=== PATIENT | female | born 1955 | race Caucasian/White ===

== ENCOUNTER 2017-03-29 10:02 | Observation (INO) ==
[2017-03-29] MEDS ORDERED: Aspirin 81 MG TAB.CHEW PO ONE (10:10)
[2017-03-29] MEDS ORDERED: Ondansetron 4 MG/2 ML VIAL IVP ONE (10:10)
--- NOTE | 2017-03-29 10:14 | Emergency Department Note ---
Disposition Clinical Impression: Near syncope Chest pain Qualifiers: Chest pain type: unspecified Qualified Code(s): R07.9 - Chest pain, unspecified Disposition: Admitted As Inpatient Condition: Good Referrals: Jaziel Alonzo DO [Primary Care Provider] - Forms: ED Satisfaction Letter Time of Disposition: 12:34 General Adult HPI - General Chief complaint: ED Arrhythmia/Palpitations Stated complaint: irregular heartbeat / CP Time Seen by Provider: 03/29/17 10:10 Source: patient Mode of arrival: wheelchair Limitations: no limitations Nursing Notes Reviewed: Yes Vital Signs Reviewed: Yes - History of Present Illness HPI Narrative: 61-year-old diabetic who has had symptoms for the last couple of days of pain in her right side of the neck down into her anterior chest. She also says she's been unsteady on her feet. Patient states that she's felt dizzy and felt like she is going to pass out. Pt Subjective Complaint: Chest pain, dizziness Onset (ago): day(s) (2) Location: chest Radiation: neck Pain Severity: moderate Quality: aching Consistency: constant Improves with: nothing Worsens with: nothing Treatments Prior to Arrival: none - Related Data Home Medications Medication Instructions Recorded Confirmed Amlodipine 08/27/15 08/27/15 Fioricet 08/27/15 08/27/15 Flovent Hfa 08/27/15 08/27/15 Gabapentin 08/27/15 08/27/15 Invokana 08/27/15 08/27/15 Lantus Solostar 08/27/15 08/27/15 Lasix 08/27/15 08/27/15 Lisinopril 08/27/15 08/27/15 Methocarbamol 08/27/15 08/27/15 Novalog 08/27/15 08/27/15 Percocet 7.5-325 mg Tablet 08/27/15 08/27/15 Potassium Chloride 08/27/15 08/27/15 Symbicort 08/27/15 08/27/15 Xanax 08/27/15 08/27/15 Zoloft 08/27/15 08/27/15 Allergies Allergy/AdvReac Type Severity Reaction Status Date / Time clarithromycin [From Biaxin] Allergy Swelling Verified 08/27/15 21:36 of Lip/Tongue/Throat exenatide [From Byetta] Allergy Hives Verified 08/27/15 21:36 Nylon 12 Allergy Swelling Verified 08/27/15 21:36 of Lip/Tongue/Throat paper tape Allergy Hives Uncoded 08/27/15 21:36 All systems ED: reviewed and negative except as stated. Constitutional: Denies: fever, chills, weakness, weight change Eyes: Denies: eye pain, eye discharge, vision change ENT ED: Denies: ear pain, throat pain, dental pain, hearing loss, epistaxis, congestion, dysphagia Cardiovascular: Reports: chest pain. Denies: palpitations, dyspnea on exertion , edema, syncope Respiratory: Denies: cough, dyspnea, wheezes, hemoptysis, stridor Gastrointestinal: Denies: abdominal pain, nausea, vomiting, diarrhea, constipation, hematemesis, melena, hematochezia Genitourinary: Denies: dysuria, frequency, hematuria, discharge Musculoskeletal: Denies: back pain, neck pain, arthralgia, myalgia Integumentary: Denies: rash, abrasion, lesions Neurological: Reports: other (Dizziness). Denies: headache, weakness, numbness , paresthesias, confusion, abnormal gait, vertigo Psychiatric: Denies: anxiety, depression, suicidal thoughts, homicidal thoughts , auditory hallucinations, visual hallucinations Endocrine: Denies: fatigue Hematological/Lymphatic: Denies: easy bleeding, easy bruising Allergic/Immunologic: Denies: facial swelling, urticaria Past Medical History - Past Medical History Medical history: Reports: arthritis, asthma, atrial fibrillation, COPD, diabetes , hyperlipidemia, hypertension, migraine, renal disease, other (Obstructive sleep apnea, morbid obesity) Surgical history: Reports: cholecystectomy, hysterectomy, knee replacement, other (Carpal tunnel) Psychiatric history: Reports: anxiety, depression COMMERCIAL ESTIMATOR 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: 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: 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 - Social History Smoking Status: Current every day smoker Smokeless Tobacco Status: No Alcohol use: Reports: none Drug use: Reports: none Physical Exam - General Limitations: no limitations General appearance: alert, in no apparent distress - Head Head exam: atraumatic, normocephalic, normal inspection - Eye Eye exam: Present: normal appearance, PERRL, EOMI - ENT ENT exam: normal exam, normal oropharynx, mucous membranes moist - Neck Neck exam: Present: normal inspection, full ROM, trachea midline - Chest Chest inspection: Present: normal inspection, symmetric chest wall rise - Respiratory Respiratory exam: Present: normal lung sounds bilaterally - Cardiovascular Cardiovascular exam: Present: regular rate - Abdominal Exam Abdominal exam: Present: soft, Non-Tender. Absent: tenderness, distention, guarding, rebound, rigidity - Extremities Exam Extremities exam: Present: normal inspection, full ROM. Absent: tenderness, pedal edema - Expanded Lower Extremity Exam Neurovascular/Tendon exam: Absent: motor deficit, sensory deficit, tendon deficit Gait: not tested/not observed - Back Exam Back exam: Present: normal inspection, full ROM. Absent: tenderness - Neurological Exam Neurological exam: Present: alert, oriented X3 - Psychiatric Psychiatric exam: Present: normal affect, normal mood - Skin Skin exam: Present: warm, dry, intact, normal color Course - Reevaluation(s) Reevaluation #1: 61-year-old comes in complaining of some chest pain and near syncope. Workup is negative patient will be admitted for observation. Time: 12:35 - Consultations Consultation #1: Discussed with Dr. Simons, admit. Time: 12:35 Vital Signs Temperature 97.8 F 03/29/17 10:07 Pulse Rate 62 03/29/17 10:07 Respiratory Rate 18 03/29/17 10:07 Blood Pressure 135/76 03/29/17 10:07 O2 Sat by Pulse Oximetry 97 03/29/17 10:07 Temperature 97.8 F 03/29/17 10:07 Pulse Rate 57 03/29/17 11:07 Respiratory Rate 16 03/29/17 11:07 Blood Pressure 135/71 03/29/17 11:07 O2 Sat by Pulse Oximetry 97 03/29/17 11:07 Oxygen Delivery Oxygen Delivery Room Air Medical Decision Making - Lab Data Lab results reviewed: Yes I reviewed the patient's lab results. Result diagrams: 03/29/17 10:55 03/29/17 10:55 Lab Results 03/29/17 03/29/17 03/29/17 Range/Units 10:55 10:55 10:55 WBC 5.2 (4.3-11.1) K/mcL RBC 4.37 (3.82-4.97) M/mcL Hgb 13.3 (11.5-15.4) g/dL Hct 40.9 (35.3-44.9) % MCV 93.6 (83.0-100.0) fL MCH 30.4 (28.0-33.3) pg MCHC 32.5 (31.6-35.5) g/dL RDW 13.2 (11.5-14.5) % Plt Count 165 (140-400) K/mcL MPV 10.6 (9.4-12.4) fL Immature Gran % 0.2 (0-4) % Seg Neutrophils % 60.0 % Lymphocytes % 34.2 % Monocytes % 4.6 % Eosinophils % 0.4 % Basophils % 0.6 % Neutrophils # 3.1 (1.6-8.9) K/mcL Lymphocytes # 1.8 (0.6-4.6) K/mcL Monocytes # 0.2 (0.0-1.3) K/mcL Eosinophils # 0.0 (0.0-0.6) K/mcL Basophils # 0.0 (0.0-0.2) K/mcL Immature Plt Fraction 6.8 H (1.1-6.1) % PT 10.9 (9.4-12.1) Seconds INR 1.0 APTT 27.3 (26.0-36.0) Seconds Sodium (136-145) mEq/L Potassium (3.5-4.5) mEq/L Chloride (98-109) mEq/L Carbon Dioxide (19-29) mEq/L BUN (7-20) mg/dL Creatinine (0.57-1.11) mg/dL Est GFR ( Amer) (> 60) Est GFR (Non-Af Amer) (> 60) BUN/Creatinine Ratio (6-26) Glucose (70-99) mg/dL Calculated Osmolality (280-300) Calcium (8.6-10.8) mg/dL Troponin I (0-0.03) ng/mL B-Natriuretic Peptide 37 (0-100) pg/mL 03/29/17 03/29/17 Range/Units 10:55 10:55 WBC (4.3-11.1) K/mcL RBC (3.82-4.97) M/mcL Hgb (11.5-15.4) g/dL Hct (35.3-44.9) % MCV (83.0-100.0) fL MCH (28.0-33.3) pg MCHC (31.6-35.5) g/dL RDW (11.5-14.5) % Plt Count (140-400) K/mcL MPV (9.4-12.4) fL Immature Gran % (0-4) % Seg Neutrophils % % Lymphocytes % % Monocytes % % Eosinophils % % Basophils % % Neutrophils # (1.6-8.9) K/mcL Lymphocytes # (0.6-4.6) K/mcL Monocytes # (0.0-1.3) K/mcL Eosinophils # (0.0-0.6) K/mcL Basophils # (0.0-0.2) K/mcL Immature Plt Fraction (1.1-6.1) % PT (9.4-12.1) Seconds INR APTT (26.0-36.0) Seconds Sodium 138 (136-145) mEq/L Potassium 4.1 (3.5-4.5) mEq/L Chloride 104 (98-109) mEq/L Carbon Dioxide 25 (19-29) mEq/L BUN 12 (7-20) mg/dL Creatinine 0.92 (0.57-1.11) mg/dL Est GFR ( Amer) > 60 (> 60) Est GFR (Non-Af Amer) > 60 (> 60) BUN/Creatinine Ratio 13 (6-26) Glucose 189 H (70-99) mg/dL Calculated Osmolality 291 (280-300) Calcium 9.0 (8.6-10.8) mg/dL Troponin I 0.00 (0-0.03) ng/mL B-Natriuretic Peptide (0-100) pg/mL - Radiology Data Radiology results reviewed: Yes I reviewed the patient's radiology results. Chest X-Ray 03/29/17 10:10 IMPRESSION: No acute process. D/ / Bekah Tolbert MD / Bekah Tolbert MD Interpreting Provider: Bekah Tolbert MD Head CT 03/29/17 11:28 IMPRESSION: No acute intracranial abnormality. D/ / Jaziel Triana MD / Jaziel Triana MD Interpreting Provider: Jaziel Triana MD - EKG Data EKG #1 EKG attestation: Yes I reviewed and interpreted this EKG. EKG shows normal: sinus rhythm Rate: normal Rhythm: NSR [place]/QRS: LBBB When compared to previous EKG there are: no significant changes (03/20/2015) Interpretation: no acute changes
[2017-03-29 11:09] LABS: Basophils % 0.6 %; Eosinophils % 0.4 %; Hematocrit 40.9 % (35.3-44.9); Hemoglobin 13.3 g/dL (11.5-15.4); Immature Granulocytes % 0.2 % (0-4); Immature Platelets 6.8 % (1.1-6.1); Lymphocytes # 1.8 K/mcL (0.6-4.6); Lymphocytes % 34.2 %; Mean Corpuscular HGB Conc 32.5 g/dL (31.6-35.5); Mean Corpuscular Hemoglobin 30.4 pg (28.0-33.3); Mean Corpuscular Volume 93.6 fL (83.0-100.0); Mean Platelet Volume 10.6 fL (9.4-12.4); Monocytes # 0.2 K/mcL (0.0-1.3); Monocytes % 4.6 %; Neutrophils # 3.1 K/mcL (1.6-8.9); Platelet Count 165 K/mcL (140-400); Red Blood Count 4.37 M/mcL (3.82-4.97); Red Cell Distribution Width 13.2 % (11.5-14.5)
[2017-03-29 11:17] LABS: Prothrombin Time 10.9 Seconds (9.4-12.1)
[2017-03-29 11:20] LABS: Activated Partial Thrombo Time 27.3 Seconds (26.0-36.0)
[2017-03-29 11:25] LABS: BUN/Creatinine Ratio 13 (6-26); Blood Urea Nitrogen 12 mg/dL (7-20); Carbon Dioxide 25 mEq/L (19-29); Chloride 104 mEq/L (98-109); Glucose 189 mg/dL (70-99); Osmolality,Calculated 291 (280-300); Potassium 4.1 mEq/L (3.5-4.5); Sodium 138 mEq/L (136-145); eGFR For African Americans > 60 (> 60); eGFR For Non-African Americans > 60 (> 60)
[2017-03-29] MEDS ORDERED: Acetaminophen 325 MG TABLET PO PRN (13:03)
[2017-03-29] MEDS ORDERED: Ondansetron 4 MG/2 ML VIAL IVP PRN (13:03)
[2017-03-29] MEDS ORDERED: *HR* Morphine 2 MG/ML SYRINGE IVP PRN (13:03)
[2017-03-29] MEDS ORDERED: *HR* HYDROcodone/Acet 5/325 mg TABLET PO PRN (13:03)
[2017-03-29] MEDS ORDERED: Naloxone 0.4 MG/ML INJ IVP PRN (13:03)
--- NOTE | 2017-03-29 13:31 | Internal Med History&Physical ---
<John Young - Last Filed: 03/29/17 19:42> Date of Encounter: 03/29/17 Time of Encounter: 12:30 Assessment and Plan (1) Chest pain Current visit: Yes Status: Acute Assess: Mrs. Clemente presents with chief complaint of new onset of chest pain in her right side of chest and neck which radiates to the right side of her back. Patient reports is going on for 4 days along with nausea, headache, dizziness, vomiting, chills, low-grade fever. Patient states that when the dizziness. She feels as though she is going to pass out. Patient reports this is a new onset of chest pain. Patient is at high risk due to history of atrial fibrillation, DM, hyperlipidemia, and hypertension. Plan: Trend troponins x2 EV limited echocardiogram ordered Continuous cardiac telemetry D-dimer ordered Supplemental O2 with titration Follow-up labs ordered Patient to be monitored closely Qualifiers: Chest pain type: unspecified Qualified Code(s): R07.9 - Chest pain, unspecified (2) Near syncope Current visit: Yes Status: Acute Assess: Mrs. Clemente presents with chief complaint of new onset of chest pain in her right side of chest and neck which radiates to the right side of her back. Patient reports associated dizziness and pre-syncopal episodes. Plan: Continuous cardiac telemetry Bilateral carotid Doppler duplex imaging ordered Supplemental O2 with titration Follow-up labs ordered Patient to be monitored closely (3) Atrial fibrillation Current visit: Yes Status: Chronic Assess: Patient presents with history of chronic atrial fibrillation. Plan: Continuous cardiac telemetry Heparin 5,000 units SQ Q8 ordered for DVT prophylaxis D-dimer ordered Supplemental O2 with titration Patient to be monitored closely Qualifiers: Atrial fibrillation type: unspecified Qualified Code(s): I48.91 - Unspecified atrial fibrillation (4) Hyperlipidemia Current visit: Yes Status: Chronic Assess: Patient presents with history of chronic hyperlipidemia. Plan: Lipid panel ordered Continue Lipitor Qualifiers: Hyperlipidemia type: unspecified Qualified Code(s): E78.5 - Hyperlipidemia , unspecified (5) Hypertension Current visit: Yes Status: Chronic Assess: Patient presents with history of chronic hypertension. Plan: Continue Lisinopril Monitor patient's vital signs Qualifiers: Hypertension type: essential hypertension Qualified Code(s): I10 - Essential (primary) hypertension (6) Renal disease Current visit: Yes Status: Chronic Assess: Patient reports having history of renal disease. Creatinine on first blood draw is 0.92. GFR estimated at >60. BUN/creatinine ratio is 13. Patient currently has bilateral 2+ pitting edema of lower extremities. IVP Lasix ordered 40 mg. Will consider daily dosing based on resolution of edema. Plan: Lasix ordered for bilateral pedal edema 40 mg IVP ONCE. Monitor I&O daily Monitor daily weight Follow-up labs ordered (7) Diabetes Current visit: Yes Status: Chronic Assess: Patient presents with history of chronic diabetes. 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 Plan: Heparin 5,000 units SQ Q8 ordered Internal Medicine - H&P: HPI Chief complaint: Chest Pain Admitted From: Emergency Dept Plans for Post Hospital Care: Home History of present illness: Mrs. Clemente is a 61 year old female who presents from the ED with chief complaint of new onset of chest pain in her right side of chest and neck which radiates to the right side of her back. Patient reports is going on for 4 days along with nausea, headache, dizziness, vomiting, chills, low-grade fever. Patient states that when the dizziness. She feels as though she is going to pass out. Patient denies syncope but reports presyncopal episodes. Patient denies shortness of breath related to chest pain, wheezes, hematemesis, palpitations, abdominal pain, melena, hematochezia, hematemesis, or recent illness. She states that she has a cough with sputum production early in the morning that is colorless. Patient currently has 2+ pitting edema bilaterally in lower extremities and currently takes Lasix which she states she is not always compliant in taking daily. CXR dated today is unremarkable. CT scan today is also unremarkable. Mrs. Clemente is a history of arthritis, asthma, atrial fibrillation which was diagnosed [address] [place], COPD, diabetes, bilateral neuropathy of lower extremities, hyperlipidemia, hypertension, cluster headaches, renal disease, obstructive sleep apnea, and morbid obesity. Patient reports she has lack of appetite for the past 4 weeks and has lost approximately 20 pounds within the past month. Patient is to be admitted as inpatient status due to new onset of chest pain and history of atrial fibrillation. Orders have been placed for continuous cardiac telemetry, trend troponins 2, supplemental O2 with titration if SPO2 is less than 92%, falls precautions/bed rest with bathroom privileges/[id number] due to history of instability and falls. Will consider cardiology consult based on subsequent tropinin results and continued symptomology. Patient to be monitored closely. Past Med Surg Social Fam HX - Past Medical History Medical history: arthritis, asthma, atrial fibrillation, COPD, diabetes, hyperlipidemia, hypertension, migraine, renal disease, other (Obstructive sleep apnea, morbid obesity) Psychiatric history: anxiety, depression - Past Surgical History Surgical History: cholecystectomy, hysterectomy, knee replacement (Bilaterally) , other (Carpal tunnel (left x2, right x1)) - Social History Smoking Status: Current every day smoker Packs per day: 1 PPD Smokeless Tobacco Status: No Alcohol use: none Drug use: none Occupational status: unemployed Current living situation: Home, With Family Activity Level: Independent ambulation Recent Out of Country Travel Within the Last 8 Weeks: No Exposure or Possible Exposure to Illness During Travel: No - Family History Father Race: Family Member Ethnicity: Non- Living Status: Age at : 69 Cause of : Metastatic cancer Hx Family Respiratory Disorders: Yes (Black lung disease) Hx Family Cancer: Yes (Stomach/metastatic) Mother Race: Family Member Ethnicity: Non- Living Status: Age at : 86 Cause of : AL Hx Family Cardiac Disorders: Yes (Stroke) Hx Family Neurologic Disorders: Yes (Alzheimer's disease) Brother Race: Family Member Ethnicity: Non- Living Status: Still Living Hx Family Cardiac Disorders: Yes (AL) Hx Family Endocrine Disorder: Yes (DM) Sister Race: Family Member Ethnicity: Non- Living Status: Still Living Hx Family Endocrine Disorder: Yes (DM) Internal Medicine - H&P: Meds Amlodipine Besylate 10 mg PO DAILY 03/29/17 [History] Aspirin [Ecotrin] 325 mg PO DAILY 03/29/17 [History] Atorvastatin [Lipitor] 40 mg PO HS 03/29/17 [History] Butalbital/Aspirin/Caffeine [Fiorinal 50-325-40 mg Capsule] 1 each PO Q6H PRN [History] Canagliflozin [Invokana] 300 mg PO DAILY 03/29/17 [History] Gabapentin [Neurontin] 800 mg PO Q6H 03/29/17 [History] Insulin Glargine [Lantus] 20 unit SQ BID 03/29/17 [History] Lisinopril [Zestril] 20 mg PO DAILY 03/29/17 [History] Methocarbamol [Robaxin-750] 750 mg PO BID 03/29/17 [History] Omeprazole 20 mg PO BID 03/29/17 [History] Oxycodone HCl/Acetaminophen [Percocet 7.5-325 mg Tablet] 1 each PO Q6H PRN 03/29 [History] Potassium Chloride [K-Tab ER] 10 meq PO DAILY 03/29/17 [History] Sertraline [Zoloft] 100 mg PO DAILY 03/29/17 [History] Allergies bupropion [From Wellbutrin] Allergy (Verified 03/29/17 13:37) Itching clarithromycin [From Biaxin] Allergy (Verified 03/29/17 13:37) Swelling of Lip/Tongue/Throat clindamycin Allergy (Verified 03/29/17 13:37) Itching Diclofenac [From Voltaren] Allergy (Verified 03/29/17 13:37) See Comments "IT ALMOST KILLED ME" exenatide [From Byetta] Allergy (Verified 03/29/17 13:37) Hives metoprolol Allergy (Verified 03/29/17 13:37) Chest Pain Nylon 12 Allergy (Verified 03/29/17 13:37) Swelling of Lip/Tongue/Throat aspartame Adverse Reaction (Verified 03/29/17 13:37) Migraine pioglitazone [From Actos] Adverse Reaction (Verified 03/29/17 13:37) See Comments SWELLING paper tape Allergy (Uncoded 08/27/15 21:36) Hives MSG Adverse Reaction (Uncoded 03/29/17 13:37) Diarrhea All Systems PM: A 10-system review of systems was performed and is negative for pertinent findings except as documented above in the HPI. - Constitutional Constitutional: as per HPI, anorexia, chills, fever(s), falls, weakness, weight loss (20 pounds in 1 month) - EENT Eyes: no change in vision, no discharge, no pain, no photophobia Ears: no ear discharge, no ear pain, no tinnitus Nose, mouth and throat: no dysphagia, no nasal discharge, no neck pain, no sore throat - Breasts Breasts: as per HPI - Cardiovascular Cardiovascular ROS IM: as per HPI, chest pain, edema, lightheadedness, no diaphoresis, no dyspnea, no palpitations, no syncope - Respiratory Respiratory: as per HPI, cough, no dyspnea, no wheezing, no excessive phlegm production - Gastrointestinal Gastrointestinal: as per HPI, constipation, no abdominal pain, no diarrhea, no hematemesis, no hematochezia, no melena, no nausea, no vomiting - Genitourinary Genitourinary: no change in urinary stream, no dysuria, no flank pain, no hematuria Menstruation: as per HPI, post hysterectomy - Musculoskeletal Musculoskeletal ROS IM: no numbness, no tingling - Integumentary Integumentary IM: no rash, no unusual bruising - Neurological Neurological ROS: no confusion, no convulsions, no focal weakness, no numbness, no tingling, no tremor(s) - Psychiatric Psychiatric: as per HPI - Endocrine Endocrine IM: as per HPI - Hematologic/Lymphatic Hematologic/Lymphatic: no easy bruising - Allergic/Immunologic Allergic/Immunologic: as per HPI - Constitutional Vitals: Temp Pulse Resp BP Pulse Ox 97.8 F 57 16 148/74 97 03/29/17 10:07 03/29/17 11:07 03/29/17 12:57 03/29/17 12:57 03/29/17 11:07 General appearance: Present: cooperative, A&O X 3, morbidly obese, pleasant, no acute distress, loss of weight (Reports 20 pounds in 1 month time), answers questions appropriately - Head Head exam: Present: atraumatic, normocephalic - Eye Eye exam: Present: PERRL, conjuntiva pink, sclera anicteric Pupils: Present: PERRL - ENT ENT exam: Present: normal exam, normal external ear exam - Neck Neck exam general surgery: Present: supple, trachea midline. Absent: lymphadenopathy - Respiratory Respiratory exam: Present: CTAB. Absent: accessory muscle use, rales, rhonchi, wheezes - Cardiovascular Cardiovascular exam: Present: RRR, +S1, +S2. Absent: diastolic murmur, gallop, rubs, systolic murmur - GI/Abdominal GI/Abdominal exam: Present: normal bowel sounds, soft, no peritoneal signs. Absent: distended, tenderness - Rectal Rectal exam: Present: deferred - Additional comments: exam deferred. - Extremities Exam Extremities exam: Present: warm, radial pulses palpable and symetrical. Absent : calf tenderness, cyanotic, pedal edema - Back Exam Back exam: Present: normal inspection - Neurological Exam Neurological exam: Present: CN II-XII intact, oriented X3, no focal deficits. Absent: pronater drift, facial droop, speech deficit - Psychiatric Psychiatric exam: Present: normal affect, normal mood - Skin Skin exam: Present: dry, intact Internal Med - H&P Results - Labs CBC & Chem 7: 03/29/17 10:55 03/29/17 10:55 - EKG Data EKG shows normal: sinus rhythm - EKG Data Prior EKG available for review: yes When compared to previous EKG: there is no significant change EKG comments: 03/29/17 13:37 EKG dated 03/20/15 shows sinus rhythm with first-degree AV block, marked left axis deviation, left bundle branch block. EKG dated 03/29/17 shows sinus rhythm with first-degree AV block, marked left axis deviation [QRS axis < -30], left bundle branch block {120+ ms QRS duration , 80+ ms Q/S in V1/V2, 85+ ms R in I/aVL/V5/V6], possible lateral myocardial infarction [30 ms Q wave in I/aVL/V5/V6] of indeterminate age. - Diagnostic Studies Chest x-ray Additional comments: Impressions Chest X-Ray 03/29/17 10:10 IMPRESSION: No acute process. D/ / Bekah Tolbert MD / Bekah Tolbert MD Interpreting Provider: Bekah Tolbert MD CT scan - head Additional comments: Impressions Head CT 03/29/17 11:28 IMPRESSION: No acute intracranial abnormality. D/ / Jaziel Triana MD / Jaziel Triana MD Interpreting Provider: Jaziel Triana MD <Bella Lyle E - Last Filed: 03/30/17 07:52> Date of Encounter: 03/30/17 Internal Medicine - H&P: HPI History of present illness: Ms. Clemente is a 61 year old female All Systems PM: A 10-system review of systems was performed and is negative for pertinent findings except as documented above in the HPI. - Constitutional Vitals: Temp Pulse Resp BP Pulse Ox 98.4 F 50 19 104/66 100 03/30/17 04:19 03/30/17 04:19 03/30/17 04:19 03/30/17 04:19 03/30/17 04:19 Internal Med - H&P Results - Labs CBC & Chem 7: 03/30/17 05:33 03/30/17 05:33 Labs: Short CBC 03/30/17 Range/Units 05:33 WBC 6.5 (4.3-11.1) K/mcL Hgb 12.3 (11.5-15.4) g/dL Hct 38.5 (35.3-44.9) % Plt Count 159 (140-400) K/mcL Neutrophils # 2.0 (1.6-8.9) K/mcL BMP 03/30/17 05:33 Sodium 139 Potassium 4.2 Chloride 107 Carbon Dioxide 23 BUN 14 Creatinine 0.96 Glucose 130 H Calcium 8.4 L Cardiac Enzymes 03/29/17 03/29/17 Range/Units 15:00 21:04 Troponin I 0.00 0.00 (0-0.03) ng/mL Liver Function 03/30/17 Range/Units 05:33 Total Bilirubin 0.4 (0.2-1.2) mg/dL AST 13 (5-34) Units/L ALT 10 (0-55) Units/L Alkaline Phosphatase 80 (38-126) Units/L Albumin 3.0 L (3.5-5.0) g/dL - Attending Attestation This is a late entry for a patient I examined and reviewed laboratory, imaging and all diagnostic data on 03/29/17. My medical decision-making was reviewed with John Young - KELL. I agree with the documented findings, disposition and treatment plan as described above. History and exam by me shows: atypical chest pain in a patient at risk for ACS because of diabetes and smoking. Negative troponins, EKG, CXR. Follow up serial troponins, and stress test in AM if negative.
[2017-03-29] MEDS ORDERED: Acetaminophen/Butalbital/CaffeineTABLET PO PRN (14:05)
[2017-03-29] MEDS ORDERED: Dextrose Gel 15 GM PO PRN ×2 (14:07)
[2017-03-29] MEDS ORDERED: D5% in Water 1,000 ML IVC PRN (14:07)
[2017-03-29] MEDS ORDERED: *HR* Dextrose 50 % in Water (Syg) 50 ML SYRINGE IVP PRN (14:07)
[2017-03-29 14:23] LABS: Thyroid Stimulating Hormone 0.824 mcIU/mL (0.350-4.840)
[2017-03-29] MEDS ORDERED: Furosemide 40 MG/4 ML VIAL IVP ONE (14:28)
[2017-03-29] MEDS: *HR* Heparin 5,000 UNIT/ML VIAL SQ SCH ×2 (15:29→22:38)
[2017-03-29] MEDS: Gabapentin 400 MG CAPSULE PO SCH ×2 (15:30→21:07)
[2017-03-29] MEDS: *HR* OxyCODONE/APAP 7.5/325 TABLET PO PRN (15:30)
--- NOTE | 2017-03-29 15:42 | Electrocardiograph Report ---
[address] [place], [place] [address] Test Date: 2017-03-29 Pat Name: Toya Clemente Department: 102 Room: [facility] Gender: F Territory Supervisor: Steph : 1955 Requested By: Gopal Tavares Order Number: [id number] Reading MD: Brad Lee MD Measurements Intervals [place] Rate: 64 P: 40 [place]: 227 QRS: -37 QRSD: 146 T: 69 QT: 398 QTc: 407 Interpretive Statements SINUS RHYTHM WITH FIRST DEGREE AV BLOCK MARKED LEFT AXIS DEVIATION LEFT BUNDLE BRANCH BLOCK Electronically Signed On 03-29-2017 15:41:13 EDT by Brad Lee MD
[2017-03-29] MEDS: Insulin LISPRO 300 UNITS/3 ML VIAL SQ SCH ×2 (16:48→21:06)
[2017-03-29] MEDS: Insulin DETEMIR 100 UNIT/ML X5UNITS SQ SCH (21:06)
[2017-03-29] MEDS: Methocarbamol 750 MG TABLET PO SCH (21:08)
[2017-03-30] MEDS: Gabapentin 400 MG CAPSULE PO SCH ×4 (02:13→21:44)
[2017-03-30] MEDS: *HR* Heparin 5,000 UNIT/ML VIAL SQ SCH ×2 (05:38→14:47)
[2017-03-30 05:55] LABS: Basophils % 0.6 %; Eosinophils # 0.1 K/mcL (0.0-0.6); Eosinophils % 1.1 %; Hematocrit 38.5 % (35.3-44.9); Hemoglobin 12.3 g/dL (11.5-15.4); Immature Granulocytes % 0.2 % (0-4); Lymphocytes # 3.9 K/mcL (0.6-4.6); Lymphocytes % 60.3 %; Mean Corpuscular HGB Conc 31.9 g/dL (31.6-35.5); Mean Corpuscular Hemoglobin 29.9 pg (28.0-33.3); Mean Corpuscular Volume 93.7 fL (83.0-100.0); Mean Platelet Volume 11.3 fL (9.4-12.4); Monocytes # 0.4 K/mcL (0.0-1.3); Monocytes % 6.8 %; Platelet Count 159 K/mcL (140-400); Red Blood Count 4.11 M/mcL (3.82-4.97); Red Cell Distribution Width 13.4 % (11.5-14.5)
[2017-03-30 06:08] LABS: Alanine Aminotransferase 10 Units/L (0-55); Alkaline Phosphatase 80 Units/L (38-126); Aspartate Amino Transferase 13 Units/L (5-34); BUN/Creatinine Ratio 15 (6-26); Bilirubin,Total 0.4 mg/dL (0.2-1.2); Blood Urea Nitrogen 14 mg/dL (7-20); Calcium 8.4 mg/dL (8.6-10.8); Carbon Dioxide 23 mEq/L (19-29); Chloride 107 mEq/L (98-109); Chol/HDL Ratio 4.5 (0-4.9); Cholesterol 118 mg/dL (< 200); Glucose 130 mg/dL (70-99); HDL Cholesterol 26 mg/dL (40-59); LDL Cholesterol,Calculated 56 mg/dL (0-99); Magnesium 1.3 mg/dL (1.6-2.6); Osmolality,Calculated 290 (280-300); Phosphorous 4.5 mg/dL (2.3-4.7); Potassium 4.2 mEq/L (3.5-4.5); Sodium 139 mEq/L (136-145); Triglycerides 178 mg/dL (< 150); eGFR For African Americans > 60 (> 60); eGFR For Non-African Americans 59 (> 60)
--- NOTE | 2017-03-30 07:21 | Carotid Imaging Report ---
Carotid Duplex Patient Name:Toya Clemente Order Number:[id number] Procedure Date:03/29/2017 Date:1955ge:61 yrs Gender:Female Lt BP:150 / 86 mmHg Rt.BP:150 / 85 mmHgHeart Rate: Location:[facility] Room #: 3NV20 Community Placement Worker:Gildardo Mei Referring MD:John Young CNP miller wood flour:Jaziel Campos DO Reading MD:Arsenio Levi MD Primary Indications:Chest pain radiating to neck, headaches, pre- syncope Risk Factors Yes/No Hypertension Yes Diabetes Yes Hypercholesterolemia Yes Impressions: The right carotid artery has minimal plaque throughout. The left internal carotid artery has a 40-59% stenosis. Recommendations: Risk factor reduction. Follow-up carotid duplex in 1 year. Findings Carotid Duplex: Right: There is nonstenotic plaque in the right bifurcation. There is smooth homogeneous plaque. Left: There is nonstenotic plaque in the left bifurcation. There is smooth homogeneous plaque. Prior Study: No prior study available for comparison. Carotid Results Right PSV EDV Assessment Proximal CCA 82 12 Normal Mid CCA 79 14 Normal Distal CCA 48 17 Normal Bifurcation 52 18 Non Stenotic Plaque Proximal ICA 52 17 Normal Mid ICA 68 21 Normal Distal ICA 85 23 Normal ECA 71 9 Normal Vertebral Artery 75 22 Antegrade Flow Left PSV EDV Assessment Mid CCA 97 17 Normal Distal CCA 67 17 Normal Bifurcation 71 16 Non Stenotic Plaque Proximal ICA 120 37 40-59% stenosis Mid ICA 96 29 Normal Distal ICA 82 25 Normal ECA 54 6 Normal Vertebral Artery 57 17 Antegrade Flow Ratio's Right ICA/CCA Ratio: 1.07 ICA/CCA Values: 85/79 Left ICA/CCA Ratio: 1.24 ICA/CCA Values: 120/97 Updated by Arsenio Levi MD on 03/30/2017 7:15:26 AM electronically signed on 03/30/2017 7:15:41 AM with status of Final
[2017-03-30] MEDS: Methocarbamol 750 MG TABLET PO SCH ×2 (07:58→21:44)
[2017-03-30] MEDS: Pantoprazole 40 MG VIAL IVP SCH (07:58)
[2017-03-30] MEDS: Aspirin Enteric Coated 325 MG Tablet PO SCH (07:58)
[2017-03-30] MEDS: amLODIPine 5 MG TABLET PO SCH (07:59)
[2017-03-30] MEDS: Insulin LISPRO 300 UNITS/3 ML VIAL SQ SCH ×4 (07:59→21:43)
[2017-03-30] MEDS: Lisinopril 20 MG TABLET PO SCH (07:59)
[2017-03-30] MEDS: Insulin DETEMIR 100 UNIT/ML X5UNITS SQ SCH ×2 (08:01→21:44)
[2017-03-30] MEDS ORDERED: Canagliflozin [Invokana] 300 MG PO SCH (09:00)
--- NOTE | 2017-03-30 10:02 | Internal Med Progress Note ---
<Maura Hameed - Last Filed: 03/30/17 15:38> Date of Encounter: 03/30/17 Time of Encounter: 10:02 - Assessment and plan (1) Chest pain Current Visit: Yes Status: Acute Assessment and plan: New onset chest pain with radiation to the right side of the neck over the past 4 days associated with sweating, nausea, headache, dizziness, vomiting and chills with subjective fever. Lightheaded on standing. High risk for cardiac events due to history of diabetes and prior event as well as atrial fibrillation and hypertension. Electrocardiogram stable from prior no acute cardiac events. Chest x-ray was negative no evidence of widening mediastinum or pericardial fluid other acute findings such as pneumothorax or pneumonia. PERC rule cannot be used to rule out pulmonary embolus as patient does meet one of these criteria. D-dimer was elevated mildly at 745, however, d-dimer on 01/27/2015 was elevated at 1028. Patient is not tachypneic or tachycardic. She is afebrile with stable vitals. She does not exhibit dyspnea or sudden onset of dyspnea. Patient is a heavy smoker and morbidly obese however, Pulmonary embolism unlikely. Gastrointestinal eitiologies: Symptoms are unrelated to drinking cold liquids or history of esophageal spasm. Unlikely due to spasms. Patient does have GERD however this would not explain the presyncopal component. Chest Pain is unrelated to food or position and is unlikely related to abdominal pathologies such as cholecysitis or pancreatitis. LFTs within normal limits. Echocardiogram stable compared to prior with LVEF of 60%. Trending of troponins: 0.00 TSH within normal limits 0.824, unlikely related to thyroid etiology BNP 37, unlikely related to volume status Plan: Chest pain Continuous cardiac monitoring Supplemental oxygen with titration as needed while awake. CPAP at night for obstructive sleep apnea. ASA Cardiac diet Encourage smoking cessation: While inpatient nicotine patch to prevent nicotine withdraw symptoms Continue simvastatin Continue to rule out cardiac etiology of presyncopal event: KEEP NPO AFTER MIDNIGHT FOR AM NUCLEAR STRESS TEST Supportive therapy and pain management -Acetaminophen when necessary for pain or fever -Percocet 7.5/325 for moderate to severe pain -Amlodipine 10 mg by mouth daily for blood pressure management -Insulin for glycemic control -Anti-emetic: Ondansetron -GI prophylaxis Protonix 40 mg IV daily -EPCDs to bilateral lower extremities for DVT prophylaxis -Heparin 5,000 units SQ twice daily for DVT prophylaxis The assessment and plan as outlined above was discussed with the patient and/or family members who expressed understanding and agreement. All questions were answered. Qualifiers: Chest pain type: unspecified Qualified Code(s): R07.9 - Chest pain, unspecified (2) Near syncope Current Visit: Yes Status: Acute Assessment and plan: Cardiac versus noncardiac etiologies as likely causes are under investigation. Patient does have a history of atrial fibrillation and prior stroke like symptoms/TIA. Echocardiogram demonstrated LVEF 60% Carotid duplex right carotid artery minimal plaque, left carotid artery 40-59% stenotic. Head CT negative Chest x-ray negative Electrocardiogram: Sinus rhythm with AV block primary, left axis deviation, left bundle branch block stable from prior. Nuclear stress test planned for tomorrow morning please keep nothing by mouth after midnight. (3) Hyperlipidemia Current Visit: Yes Status: Chronic Assessment and plan: Continue statin therapy as above Qualifiers: Hyperlipidemia type: unspecified Qualified Code(s): E78.5 - Hyperlipidemia , unspecified (4) Hypertension Current Visit: Yes Status: Chronic Assessment and plan: Continue home medication amlodipine as above. Will hold lisinopril as this may contribute to hypoglycemia. Qualifiers: Hypertension type: essential hypertension Qualified Code(s): I10 - Essential (primary) hypertension (5) Renal disease Current Visit: Yes Status: Chronic Assessment and plan: Patient reports history of renal disease however, chemistries are within normal limits since admission. BUN 14>12 Creatinine 0.96 =0.96 GFR 59<60 We will continue to follow daily labs. (6) Diabetes Current Visit: Yes Status: Chronic Assessment and plan: Patient is a type II diabetic taking Invokana 300 mg PO QD and Lantus 20 U SQ BID as an at-home regimen. Hold oral hypoglycemics Glucose checks per protocol Subcutaneous insulin: Insulin low-dose sliding scale Qualifiers: Diabetes mellitus type: type 2 Diabetes mellitus complication status: with kidney complications Diabetes mellitus complication detail: with nephropathy Diabetes mellitus intermediate accountant insulin use: unspecified intermediate accountant insulin use status Qualified Code(s): E11.21 - Type 2 diabetes mellitus with diabetic nephropathy (7) Atrial fibrillation Current Visit: Yes Status: Chronic Assessment and plan: Patient not on any anticoagulation except for aspirin full strength due to concerns to patient being a fall risk. Patient is maintaining sinus rhythm. Qualifiers: Atrial fibrillation type: unspecified Qualified Code(s): I48.91 - Unspecified atrial fibrillation (8) DVT prophylaxis Current Visit: Yes Status: Acute Assessment and plan: EPCDs to bilateral lower extremities for DVT prophylaxis Heparin 5,000 units SQ twice daily for DVT prophylaxis The assessment and plan as outlined above was discussed with the patient and/or family members who expressed understanding and agreement. All questions were answered. - Subjective Interval history: Patient was seen and examined. Patient reports no acute events overnight. However she is requesting a nicotine patch as she says she is ready for a cigarette right now. Patient currently smokes over a pack per day due to recent stress events in her life. 44+ total years of tobacco use disorder. Patient also states that she has not had a bowel movement in several days and feels bloated. She is requesting assistance to help evacuate her bowels. Furthermore she describes right arm intermittent twitching that had onset after her 19-year-old grandson was charged with child molestation and subsequently taken to intermediate. Her grandson lived with her for several months just prior to his mother finding evidence and turning it into the police. Since that time patient has had intermittent twitching of her right arm whenever she thinks about her grandson. Likely psychosomatic response to stress as her neurologic exam is nonfocal. Patient becomes tearful on exam when discussing her grandson and right arm twitch is exacerbated. Discussed results of echo, carotid duplex, head CT, chest x-ray, EKG with patient. Patient will be nothing by mouth after midnight for nuclear stress tests to evaluate for diaphoresis, dizziness/ lightheadedness/presyncopal symptoms on standing associated with chest pain that radiates to her neck. Patient admits to medication noncompliance at home. She states that when she was told to begin insulin therapy at home she just could not bear the thought of it and did not like doing it as her doctor recommended. She states that she has since changed her to an however and occasionally does give herself insulin injections. She reports that her blood sugar on initial presentation was within the 120 range she does not feel that she was hypoglycemic causing the symptoms of nausea, vomiting, diaphoresis, dizziness/presyncopal symptoms. - Constitutional Vitals: Temp Pulse Resp BP Pulse Ox 98.4 F 52 16 104/74 96 03/30/17 07:06 03/30/17 07:06 03/30/17 07:06 03/30/17 07:06 03/30/17 07:06 General appearance: Present: cooperative, A&O X 3, morbidly obese, pleasant, no acute distress, loss of weight (Reports 20 pounds in 1 month time), answers questions appropriately Exam: General: Cooperative, pleasant, morbidly obese, no acute distress, alert and oriented 3, becomes tearful on exam when discussing her grandson right arm twitches exacerbated psychosomatic etiology of tremor twitch as neurologic exam is nonfocal. HEENT: Normocephalic, atraumatic, neck supple, trachea midline, Conjunctiva pink , sclera anicteric, EOMI, PERRL, oral mucosa moist, no orophargeal erythema or exudates patient is wearing her glasses Respiratory: No accessory muscle usage, diffuse wheezing bilaterally, decreased sounds at the lung bases, no rhonchi/rales appreciated Cardiovascular: Regular rate and rhythm, distant heart sounds although increased AP diameter S1 and S2 present, no murmurs/rubs/gallops/clicks appreciated GI/abdominal: Nondistended, left lower quadrant minimal tenderness stool bulk palpable, soft, normal bowel sounds, no peritoneal signs, abdominal panniculus with bruising from subcutaneous heparin and insulin injection sites. Extremities: No calf tenderness, noncyanotic, 1+ pedal edema appreciated, warm, lower extremity pulses palpable and symmetrical Neurological: Alert and oriented 3, no facial droop, no focal deficits, strength upper and lower extremity equal bilaterally Skin: Dry, intact, normal color Internal Medicine: Result - Labs CBC & Chem 7: 03/30/17 05:33 03/30/17 05:33 Labs: Short CBC 03/30/17 Range/Units 05:33 WBC 6.5 (4.3-11.1) K/mcL Hgb 12.3 (11.5-15.4) g/dL Hct 38.5 (35.3-44.9) % Plt Count 159 (140-400) K/mcL Neutrophils # 2.0 (1.6-8.9) K/mcL BMP 03/30/17 05:33 Sodium 139 Potassium 4.2 Chloride 107 Carbon Dioxide 23 BUN 14 Creatinine 0.96 Glucose 130 H Calcium 8.4 L Cardiac Enzymes 03/29/17 03/29/17 Range/Units 15:00 21:04 Troponin I 0.00 0.00 (0-0.03) ng/mL Liver Function 03/30/17 Range/Units 05:33 Total Bilirubin 0.4 (0.2-1.2) mg/dL AST 13 (5-34) Units/L ALT 10 (0-55) Units/L Alkaline Phosphatase 80 (38-126) Units/L Albumin 3.0 L (3.5-5.0) g/dL - ABG Interpretation ABG results: PT/INR, D-dimer PT 10.9 Seconds (9.4-12.1) 03/29/17 10:55 D-Dimer 745 ng/mLFEU (0-500) H 03/29/17 15:00 Consult Discharge Plan - Plan Referrals: Jaziel Alonzo DO [Primary Care Provider] - <Dom Lorenzo - Last Filed: 03/30/17 17:49> Date of Encounter: 03/30/17 - Constitutional Vitals: Temp Pulse Resp BP Pulse Ox 98.0 F 59 16 124/62 98 03/30/17 15:48 03/30/17 15:48 03/30/17 15:48 03/30/17 15:48 03/30/17 15:48 Internal Medicine: Result - Labs CBC & Chem 7: 03/30/17 05:33 03/30/17 05:33 Labs: Short CBC 03/30/17 Range/Units 05:33 WBC 6.5 (4.3-11.1) K/mcL Hgb 12.3 (11.5-15.4) g/dL Hct 38.5 (35.3-44.9) % Plt Count 159 (140-400) K/mcL Neutrophils # 2.0 (1.6-8.9) K/mcL BMP 03/30/17 05:33 Sodium 139 Potassium 4.2 Chloride 107 Carbon Dioxide 23 BUN 14 Creatinine 0.96 Glucose 130 H Calcium 8.4 L Cardiac Enzymes 03/29/17 Range/Units 21:04 Troponin I 0.00 (0-0.03) ng/mL Liver Function 03/30/17 Range/Units 05:33 Total Bilirubin 0.4 (0.2-1.2) mg/dL AST 13 (5-34) Units/L ALT 10 (0-55) Units/L Alkaline Phosphatase 80 (38-126) Units/L Albumin 3.0 L (3.5-5.0) g/dL - ABG Interpretation ABG results: PT/INR, D-dimer PT 10.9 Seconds (9.4-12.1) 03/29/17 10:55 D-Dimer 745 ng/mLFEU (0-500) H 03/29/17 15:00 - Attending Attestation I examined this patient and my medical decision-making was reviewed with the TRAINING AND DEVELOPMENT OFFICER/PA/Advanced Practice Nurse/Resident Physician. I agree with the documented findings, disposition and treatment plan as described except to the extent set forth below. atypical chest pain, stress test in am. D/W patient.
[2017-03-30] MEDS: Nicotine 21 MG PATCH.TD24 TD SCH (11:39)
[2017-03-30] MEDS: *HR* OxyCODONE/APAP 7.5/325 TABLET PO PRN ×2 (14:48→21:48)
[2017-03-31] MEDS: Gabapentin 400 MG CAPSULE PO SCH ×4 (05:25→20:11)
[2017-03-31] MEDS ORDERED: Regadenoson 0.4 MG/5 ML SYRINGE IVP ONE (05:56)
[2017-03-31] MEDS: Insulin LISPRO 300 UNITS/3 ML VIAL SQ SCH ×4 (07:46→21:39)
[2017-03-31] MEDS: amLODIPine 5 MG TABLET PO SCH (09:13)
[2017-03-31] MEDS: Lisinopril 20 MG TABLET PO SCH (09:13)
[2017-03-31] MEDS: Insulin DETEMIR 100 UNIT/ML X5UNITS SQ SCH ×2 (09:24→21:39)
[2017-03-31] MEDS: Methocarbamol 750 MG TABLET PO SCH ×2 (09:25→21:38)
[2017-03-31] MEDS: Nicotine 21 MG PATCH.TD24 TD SCH (09:26)
[2017-03-31] MEDS: Pantoprazole 40 MG VIAL IVP SCH (09:26)
[2017-03-31] MEDS: Aspirin Enteric Coated 325 MG Tablet PO SCH (09:26)
--- NOTE | 2017-03-31 10:50 | Discharge Summary ---
<Maura Hameed - Last Filed: 04/01/17 16:27> Date of Encounter: 04/01/17 Time of Encounter: 10:49 - Discharge Diagnosis (1) Chest pain Priority: Primary Status: Acute Qualifiers: Chest pain type: unspecified Qualified Code(s): R07.9 - Chest pain, unspecified (2) Near syncope Priority: Primary Status: Acute (3) Hyperlipidemia Priority: Secondary Status: Chronic Qualifiers: Hyperlipidemia type: unspecified Qualified Code(s): E78.5 - Hyperlipidemia , unspecified (4) Hypertension Priority: Secondary Status: Chronic Qualifiers: Hypertension type: essential hypertension Qualified Code(s): I10 - Essential (primary) hypertension (5) Renal disease Priority: Secondary Status: Chronic (6) Diabetes Priority: Secondary Status: Chronic Qualifiers: Diabetes mellitus type: type 2 Diabetes mellitus complication status: with kidney complications Diabetes mellitus complication detail: with nephropathy Diabetes mellitus manager long term care insulin use: unspecified manager long term care insulin use status Qualified Code(s): E11.21 - Type 2 diabetes mellitus with diabetic nephropathy (7) Atrial fibrillation Priority: Primary Status: Chronic Qualifiers: Atrial fibrillation type: unspecified Qualified Code(s): I48.91 - Unspecified atrial fibrillation (8) DVT prophylaxis Priority: Secondary Status: Acute - Discharge Medications Prescriptions: Docusate [Colace] 100 mg PO BID #60 capsule Pantoprazole Sodium [Protonix] 40 mg PO DAILY #60 granpkt.dr Home Medications: Amlodipine Besylate 10 mg PO DAILY 03/29/17 [History] Aspirin [Ecotrin] 325 mg PO DAILY 03/29/17 [History] Atorvastatin [Lipitor] 40 mg PO HS 03/29/17 [History] Butalbital/Aspirin/Caffeine [Fiorinal 50-325-40 mg Capsule] 1 each PO Q6H PRN [History] Canagliflozin [Invokana] 300 mg PO DAILY 03/29/17 [History] Gabapentin [Neurontin] 800 mg PO Q6H 03/29/17 [History] Insulin Glargine [Lantus] 20 unit SQ BID 03/29/17 [History] Lisinopril [Zestril] 20 mg PO DAILY 03/29/17 [History] Methocarbamol [Robaxin-750] 750 mg PO BID 03/29/17 [History] Omeprazole 20 mg PO BID 03/29/17 [History] Oxycodone HCl/Acetaminophen [Percocet 7.5-325 mg Tablet] 1 each PO Q6H PRN 03/29 [History] Potassium Chloride [K-Tab ER] 10 meq PO DAILY 03/29/17 [History] Sertraline [Zoloft] 100 mg PO DAILY 03/29/17 [History] Docusate [Colace] 100 mg PO BID #60 capsule 04/01/17 [Rx] Pantoprazole Sodium [Protonix] 40 mg PO DAILY #60 granpkt. 04/01/17 [Rx] Allergies/Adverse Reactions: Allergies bupropion [From Wellbutrin] Allergy (Verified 03/29/17 13:37) Itching clarithromycin [From Biaxin] Allergy (Verified 03/29/17 13:37) Swelling of Lip/Tongue/Throat clindamycin Allergy (Verified 03/29/17 13:37) Itching Diclofenac [From Voltaren] Allergy (Verified 03/29/17 13:37) See Comments "IT ALMOST KILLED ME" exenatide [From Byetta] Allergy (Verified 03/29/17 13:37) Hives metoprolol Allergy (Verified 03/29/17 13:37) Chest Pain Nylon 12 Allergy (Verified 03/29/17 13:37) Swelling of Lip/Tongue/Throat aspartame Adverse Reaction (Verified 03/29/17 13:37) Migraine pioglitazone [From Actos] Adverse Reaction (Verified 03/29/17 13:37) See Comments SWELLING paper tape Allergy (Uncoded 08/27/15 21:36) Hives MSG Adverse Reaction (Uncoded 03/29/17 13:37) Diarrhea Procedures/tests Complete & Pending: Procedures Performed prior 72 hours Category Date Time Status NM nieves perf SPECT multi [NM] Routine Exams 03/31/17 07:40 Taken EV carotid duplex imaging BI Routine Y 03/29/17 14:04 Completed EV limited echocardiogram Routine Y 03/29/17 14:33 Completed SP pharm nuclear stress Routine Y 03/31/17 07:31 Completed Date of admission: 03/29/17 12:44 Primary care physician: Jaziel Alonzo Consults: 03/29/17 13:14 Consult to Tablet Making Machine Operator Helper [CONS] Routine Reason for SW Consult: Assess patient's needs for CPAP and mobility devices for use at home due to SOB, hx of falls due to instability and dizziness 03/29/17 13:15 Consult to Occupational Therapy [CONS] Routine Comment: Evaluate, develop and implement POC Reason for Consult: Patient has hx of instability on her feet, falls, and per -synopal episodes 03/29/17 13:16 Consult to Physical Therapy [CONS] Routine Comment: Evaluate, develop and implement POC Reason for Consult: Patient has hx of instability on her feet, falls, and per -synopal episodes 03/30/17 13:24 Consult to Invasive Line Access Team [CONS] Routine Reason for Consult: Limited access, stress test Line Type: EPIV Discharging clinician: Dom Lorenzo Anticipated date of discharge: 03/31/17 - Patient Status Disposition: Home, Self-Care Condition: Good Overall status at discharge: patient is back to baseline - Discharge Instructions Follow Up With: Jaziel Alonzo DO [Primary Care Provider] - [facility] [Provider Group] (Hospital follow-up with Dr. Cash in 2 weeks for atypical chest pain and abnormal nuclear perfusion stress test) - Diet and Activity Activity: ambulate only with your walker Interval History: Patient was seen and examined. Patient reports that her bowels have some been sufficiently moved. She is grateful. Patient would like to continue outpatient medication that has helped her acid reflux symptoms while she has been in the hospital. Patient reports that since she has been here she has not had any reflux and she would very much like to continue Protonix at home as her omeprazole has been ineffective at controlling her symptoms despite daily usage. Patient is up at bedside enjoying her breakfast she is conversant and pleasant. No acute events overnight. No further episodes of dizziness. Hospital course: Ms. Clemente is a 61 year old female who presented to [facility] emergency department for evaluation of dizziness on standing and presyncopal symptoms. Associated symptoms included 4 days of nausea, vomiting, dizziness, headache, chills and low-grade fever. Patient has a history of diabetes, atrial fibrillation, and hypertension and medication noncompliance. EKG was stable for prior. Chest x-ray negative. Troponins negative. Echocardiogram stable compared to prior LVEF 60%. 2 day Non-exercise nuclear stress test demonstrated mildly abnormal results, however, low risk findings given atypical chest pain symptoms and rest of cardiac workup negative. Cardiology will follow up with patient in the outpatient setting. Patient had viral symptoms for 4 days prior to admission and volume depletion due to nausea vomiting. Patient was given IV fluids for adequate resuscitation. Patient had no further events of dizziness on standing during her stay. During the course of her stay she had difficulty with constipation MiraLAX and docusate were tried without success. Patient had final evacuation of bowels after lactulose. She reported that during her stay she had complete resolution of her gastric reflux symptoms that have been plaguing her for quite some time despite daily use of omeprazole. Patient is requesting to go home on Protonix as it has completely alleviated her symptoms of chest pain and she is feeling much better. We will discharge patient home with new prescription for Protonix. Vital stable. Afebrile. Nonfocal neurologic exam. Patient is stable from a medical standpoint to discharge home. Follow-up with cardiology outpatient. - Time Spent with Patient Total time spent providing and/or coordinating discharge services: - Constitutional Vitals: Temp Pulse Resp BP Pulse Ox 98.9 F 52 18 101/61 94 03/31/17 06:39 03/31/17 06:39 03/31/17 06:39 03/31/17 06:39 03/31/17 06:39 General appearance: Present: cooperative, A&O X 3, morbidly obese, pleasant, no acute distress, loss of weight (Reports 20 pounds in 1 month time), answers questions appropriately Exam: General: Cooperative, pleasant, morbidly obese, no acute distress, alert and oriented 3, patient is smiling and laughing and happy today HEENT: Normocephalic, atraumatic, neck supple, trachea midline, Conjunctiva pink , sclera anicteric, EOMI, PERRL, oral mucosa moist, no orophargeal erythema or exudates patient is wearing her glasses Respiratory: No accessory muscle usage, diffuse wheezing bilaterally, decreased sounds at the lung bases, no rhonchi/rales appreciated Cardiovascular: Regular rate and rhythm, distant heart sounds although increased AP diameter S1 and S2 present, no murmurs/rubs/gallops/clicks appreciated GI/abdominal: Nondistended, left lower quadrant minimal tenderness stool bulk palpable, soft, normal bowel sounds, no peritoneal signs, abdominal panniculus with bruising from subcutaneous heparin and insulin injection sites. Extremities: No calf tenderness, noncyanotic, 1+ pedal edema appreciated, warm, lower extremity pulses palpable and symmetrical Neurological: Alert and oriented 3, no facial droop, no focal deficits, strength upper and lower extremity equal bilaterally Skin: Dry, intact, normal color <Dom Lorenzo - Last Filed: 04/01/17 16:43> Date of Encounter: 04/01/17 Procedures/tests Complete & Pending: Procedures Performed prior 72 hours Category Date Time Status NM nieves perf SPECT multi [NM] Routine Exams 03/31/17 07:40 Taken SP pharm nuclear stress Routine Y 03/31/17 07:31 Completed Date of admission: 03/29/17 12:44 Primary care physician: Jaziel Alonzo Consults: 03/29/17 13:14 Consult to Tablet Making Machine Operator Helper [CONS] Routine Reason for SW Consult: Assess patient's needs for CPAP and mobility devices for use at home due to SOB, hx of falls due to instability and dizziness 03/29/17 13:15 Consult to Occupational Therapy [CONS] Routine Comment: Evaluate, develop and implement POC Reason for Consult: Patient has hx of instability on her feet, falls, and per -synopal episodes 03/29/17 13:16 Consult to Physical Therapy [CONS] Routine Comment: Evaluate, develop and implement POC Reason for Consult: Patient has hx of instability on her feet, falls, and per -synopal episodes 03/30/17 13:24 Consult to Invasive Line Access Team [CONS] Routine Reason for Consult: Limited access, stress test Line Type: EPIV 04/01/17 11:39 Consult to Cardiology [CONS] Routine Comment: Consulting Provider: Cardiology [facility] Reason for Consult: abnormal stress test Call Completed: No Hospital course: Ms. Clemente is a 61 year old female - Time Spent with Patient Total time spent providing and/or coordinating discharge services: - Constitutional Vitals: Temp Pulse Resp BP Pulse Ox 98.5 F 58 16 130/63 96 04/01/17 16:31 04/01/17 16:31 04/01/17 16:31 04/01/17 16:31 04/01/17 16:31 - Attending Attestation I examined this patient and my medical decision-making was reviewed with the PATIENT FINANCIAL REPRESENTATIVE/PA/Advanced Practice Nurse/Resident Physician. I agree with the documented findings, disposition and treatment plan as described except to the extent set forth below. Patient medically stable for discharge today 04/01/17. Evaluated by cardiology, outpatient follow up, po protonix upon discharge.
[2017-03-31] MEDS ORDERED: Lactulose Oral Soln 20 GM/30 ML UDC PO ONE (10:51)
[2017-03-31] MEDS: *HR* OxyCODONE/APAP 7.5/325 TABLET PO PRN ×2 (15:33→21:38)
--- NOTE | 2017-03-31 19:20 | Internal Med Progress Note ---
<Maura Hameed - Last Filed: 03/31/17 19:10> Date of Encounter: 03/31/17 Time of Encounter: 10:00 - Assessment and plan (1) Chest pain Current Visit: Yes Status: Acute Assessment and plan: New onset chest pain with radiation to the right side of the neck over the past 4 days associated with sweating, nausea, headache, dizziness, vomiting and chills with subjective fever. Lightheaded on standing. High risk for cardiac events due to history of diabetes and prior event as well as atrial fibrillation and hypertension. Electrocardiogram stable from prior no acute cardiac events. Chest x-ray was negative no evidence of widening mediastinum or pericardial fluid other acute findings such as pneumothorax or pneumonia. PERC rule cannot be used to rule out pulmonary embolus as patient does meet one of these criteria. D-dimer was elevated mildly at 745, however, d-dimer on 01/27/2015 was elevated at 1028. Patient is not tachypneic or tachycardic. She is afebrile with stable vitals. She does not exhibit dyspnea or sudden onset of dyspnea. Patient is a heavy smoker and morbidly obese however, Pulmonary embolism unlikely. Gastrointestinal eitiologies: Symptoms are unrelated to drinking cold liquids or history of esophageal spasm. Unlikely due to spasms. Patient does have GERD however this would not explain the presyncopal component. Chest Pain is unrelated to food or position and is unlikely related to abdominal pathologies such as cholecysitis or pancreatitis. LFTs within normal limits. Echocardiogram stable compared to prior with LVEF of 60%. Trending of troponins: 0.00 TSH within normal limits 0.824, unlikely related to thyroid etiology BNP 37, unlikely related to volume status Plan: Chest pain Continuous cardiac monitoring Supplemental oxygen with titration as needed while awake. CPAP at night for obstructive sleep apnea. ASA Cardiac diet Encourage smoking cessation: While inpatient nicotine patch to prevent nicotine withdraw symptoms Continue simvastatin Supportive therapy and pain management -Acetaminophen when necessary for pain or fever -Percocet 7.5/325 for moderate to severe pain -Amlodipine 10 mg by mouth daily for blood pressure management -Insulin for glycemic control -Anti-emetic: Ondansetron -GI prophylaxis Protonix 40 mg IV daily -EPCDs to bilateral lower extremities for DVT prophylaxis -Heparin 5,000 units SQ twice daily for DVT prophylaxis Continue to rule out cardiac etiology of presyncopal event: Pending results from nuclear stress test. If results are negative will likely discharge home. The assessment and plan as outlined above was discussed with the patient and/or family members who expressed understanding and agreement. All questions were answered. Qualifiers: Chest pain type: unspecified Qualified Code(s): R07.9 - Chest pain, unspecified (2) Near syncope Current Visit: Yes Status: Acute Assessment and plan: Cardiac versus noncardiac etiologies as likely causes are under investigation. Patient does have a history of atrial fibrillation and prior stroke like symptoms/TIA. Echocardiogram demonstrated LVEF 60% Carotid duplex right carotid artery minimal plaque, left carotid artery 40-59% stenotic. Head CT negative Chest x-ray negative Electrocardiogram: Sinus rhythm with AV block primary, left axis deviation, left bundle branch block stable from prior. Nuclear stress test results pending (3) Hyperlipidemia Current Visit: Yes Status: Chronic Assessment and plan: Continue statin therapy as above Qualifiers: Hyperlipidemia type: unspecified Qualified Code(s): E78.5 - Hyperlipidemia , unspecified (4) Hypertension Current Visit: Yes Status: Chronic Assessment and plan: Continue home medication amlodipine as above. Will hold lisinopril as this may contribute to hypoglycemia. Qualifiers: Hypertension type: essential hypertension Qualified Code(s): I10 - Essential (primary) hypertension (5) Renal disease Current Visit: Yes Status: Chronic Assessment and plan: Patient reports history of renal disease however, chemistries are within normal limits since admission. BUN 14>12 Creatinine 0.96 =0.96 GFR 59<60 We will continue to follow daily labs. (6) Diabetes Current Visit: Yes Status: Chronic Assessment and plan: Patient is a type II diabetic taking Invokana 300 mg PO QD and Lantus 20 U SQ BID as an at-home regimen. 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 Patient is maintaining sinus rhythm. Qualifiers: Atrial fibrillation type: unspecified Qualified Code(s): I48.91 - Unspecified atrial fibrillation (8) DVT prophylaxis Current Visit: Yes Status: Acute Assessment and plan: EPCDs to bilateral lower extremities for DVT prophylaxis Heparin 5,000 units SQ twice daily for DVT prophylaxis The assessment and plan as outlined above was discussed with the patient and/or family members who expressed understanding and agreement. All questions were answered. - Subjective Interval history: Patient was seen and examined. Patient reports no acute events overnight. Patient states that she is still not had a bowel movement despite docusate and MiraLAX. Discussed we will try lactulose today to help her evacuate her bowels. Otherwise patient is conversant and pleasant no complaints. - Constitutional Vitals: Temp Pulse Resp BP Pulse Ox 98.6 F 59 18 121/76 95 03/31/17 15:34 03/31/17 15:34 03/31/17 15:34 03/31/17 15:34 03/31/17 15:34 General appearance: Present: cooperative, A&O X 3, morbidly obese, pleasant, no acute distress, loss of weight (Reports 20 pounds in 1 month time), answers questions appropriately Exam: General: Cooperative, pleasant, no acute distress, alert and oriented 3, answers questions appropriately HEENT: Normocephalic, atraumatic, neck supple, trachea midline, Conjunctiva pink , sclera anicteric, EOMI, PERRL, oral mucosa moist, no orophargeal erythema or exudates Respiratory: No accessory muscle usage, clear to auscultation bilaterally, no wheezes/rhonchi/rales appreciated Cardiovascular: Regular rate and rhythm, S1 and S2 present, no murmurs/rubs/ gallops/clicks appreciated GI/abdominal: Nondistended, nontender, soft, normal bowel sounds, no peritoneal signs Extremities: No calf tenderness, noncyanotic, no pedal edema appreciated, warm, lower extremity pulses palpable and symmetrical Neurological: Alert and oriented 3, no facial droop, no focal deficits Skin: Dry, intact, normal color Internal Medicine: Result - Labs CBC & Chem 7: 03/30/17 05:33 03/30/17 05:33 - ABG Interpretation ABG results: PT/INR, D-dimer PT 10.9 Seconds (9.4-12.1) 03/29/17 10:55 D-Dimer 745 ng/mLFEU (0-500) H 03/29/17 15:00 Consult Discharge Plan - Plan Referrals: Jaziel Alonzo DO [Primary Care Provider] - <Dom Lorenzo - Last Filed: 03/31/17 20:29> Date of Encounter: 03/31/17 - Constitutional Vitals: Temp Pulse Resp BP Pulse Ox 98.6 F 59 18 121/76 95 03/31/17 15:34 03/31/17 15:34 03/31/17 15:34 03/31/17 15:34 03/31/17 20:20 Internal Medicine: Result - Labs CBC & Chem 7: 03/30/17 05:33 03/31/17 20:05 Labs: BMP 03/31/17 20:05 Sodium 139 Potassium 4.7 H Chloride 107 Carbon Dioxide 25 BUN 20 Creatinine 0.87 Glucose 144 H Calcium 8.8 - ABG Interpretation ABG results: PT/INR, D-dimer PT 10.9 Seconds (9.4-12.1) 03/29/17 10:55 D-Dimer 745 ng/mLFEU (0-500) H 03/29/17 15:00 - Attending Attestation I examined this patient and my medical decision-making was reviewed with the MACHINE HAMPER MAKER/PA/Advanced Practice Nurse/Resident Physician. I agree with the documented findings, disposition and treatment plan as described except to the extent set forth below. Chest pain, follow stress test. D/W patient. Agree with Dr. Hameed.
[2017-03-31 20:23] LABS: BUN/Creatinine Ratio 23 (6-26); Blood Urea Nitrogen 20 mg/dL (7-20); Calcium 8.8 mg/dL (8.6-10.8); Carbon Dioxide 25 mEq/L (19-29); Chloride 107 mEq/L (98-109); Glucose 144 mg/dL (70-99); Osmolality,Calculated 293 (280-300); Potassium 4.7 mEq/L (3.5-4.5); Sodium 139 mEq/L (136-145); eGFR For African Americans > 60 (> 60); eGFR For Non-African Americans > 60 (> 60)
[2017-04-01] MEDS: Gabapentin 400 MG CAPSULE PO SCH ×3 (02:54→14:25)
[2017-04-01 04:09] LABS: BUN/Creatinine Ratio 23 (6-26); Blood Urea Nitrogen 19 mg/dL (7-20); Calcium 8.9 mg/dL (8.6-10.8); Carbon Dioxide 27 mEq/L (19-29); Chloride 107 mEq/L (98-109); Glucose 103 mg/dL (70-99); Osmolality,Calculated 295 (280-300); Potassium 4.1 mEq/L (3.5-4.5); Sodium 141 mEq/L (136-145); eGFR For African Americans > 60 (> 60); eGFR For Non-African Americans > 60 (> 60)
[2017-04-01] MEDS: Nicotine 21 MG PATCH.TD24 TD SCH (10:09)
[2017-04-01] MEDS: amLODIPine 5 MG TABLET PO SCH (10:12)
[2017-04-01] MEDS: Aspirin Enteric Coated 325 MG Tablet PO SCH (10:12)
[2017-04-01] MEDS: Methocarbamol 750 MG TABLET PO SCH (10:13)
[2017-04-01] MEDS: Lisinopril 20 MG TABLET PO SCH (10:13)
[2017-04-01] MEDS: Pantoprazole 40 MG VIAL IVP SCH (10:14)
[2017-04-01] MEDS: *HR* OxyCODONE/APAP 7.5/325 TABLET PO PRN (10:14)
[2017-04-01] MEDS: Insulin LISPRO 300 UNITS/3 ML VIAL SQ SCH ×3 (10:21→17:08)
[2017-04-01] MEDS: Insulin DETEMIR 100 UNIT/ML X5UNITS SQ SCH (10:30)
--- NOTE | 2017-04-01 11:31 | Nuclear Medicine Stress Report ---
Regadenoson Nuclear 2 Name: Toya Clemente Date of Study: 03/31/2017 Date: 1955 Ht: 64.0 in Medical Record#: [id number] Age: 61 Wt: 262.0 lb Gender: Female Order #: [id number] Location: [facility] Room: [facility] Supervising Provider: Lv Berrios CNP Reading Physician: Gibran Guerin MD, [facility] Ordering Physician: John Betancourt MD Primary Care Physician: Jaziel Campos DO Stress Technologist: Daphne James RRT Telemarketing Representative: Roderick Brito Indications: Chest Pain Impression: No significant ECG changes with regadenoson. Technically suboptimal nuclear perfusion images due to a high level of subdiaphragmatic uptake. The left ventricle is mildly dilated. Gated LVEF = 68%. There is a medium sized, mild-moderate intensity, reversible perfusion defect involving the basal-apical inferior wall. Findings are consistent with mild-moderate reversible ischemia involving the inferior wall. Artifact cannot be entirely ruled-out due to image quality. Ordering physician notified of abnormal results via [employer] message. History: Hypertension Diabetes Hypercholesteremia History of Smoking Stress Test Summary: Stress Test Type: Pharmacologic Regadenoson 0.4mg/5ml given IV Baseline Information: Initial Heart Rate: 52 Blood Pressure: 142/80 Stress Information: Test Terminated Due to (primary): As per protocol Maximum Blood Pressure: 120/80 Maximum Heart Rate: 73 Percent Maximum Heart Rate Achieved: 46 Double Product: 8760 Symptoms: No chest symptoms Nuclear Summary: SPECT myocardial perfusion imaging using Tc99m Sestamibi given intravenously was performed at rest and following cardiac stress testing. The resting images were obtained following initial dose of 34.0 mCi. Following stress an additional dose of 35.0 mCi was given at peak exercise or 30 seconds post regadenoson infusion. Findings: Stress Note * Resting ECG demonstrated sinus bradycardia with first degree AV block, non-specific IVCD, LAFB, possible LVH. * No baseline arrhythmias were noted. * Patient had no chest pain during stress. * No arrhythmias were noted during stress. * No significant ECG changes with regadenoson. Hemodynamic responses * Normal hemodynamic responses to pharmacologic stress. Study Quality * Technically suboptimal nuclear perfusion images due to a high level of subdiaphragmatic uptake. Left Ventricle * The left ventricle is mildly dilated. Gated EF % * Gated LVEF = 68%. * There is a medium sized, mild-moderate intensity, reversible perfusion defect involving the basal-apical inferior wall. * Findings are consistent with mild-moderate reversible ischemia involving the inferior wall. Artifact cannot be entirely ruled-out due to image quality. TID * No evidence of transient ischemic dilatation. Updated by Gibran Guerin MD, FACC on 04/01/2017 11:23:28 AM electronically signed on 04/01/2017 11:24:48 AM with status of Final
--- NOTE | 2017-04-01 15:34 | Cardiology Consult Note ---
Date of Encounter: 04/01/17 Time of Encounter: 14:30 Assessment and Plan (1) Abnormal stress test Current Visit: Yes Status: Acute Low risk finding on 2-day nuclear stress test. Atypical chest pain symptoms, ECG unchanged, and troponin negative x3. Suspect symptoms are GI in etiology. TTE: EF preserved with normal wall motion. Recommend medical therapy, patient states she does not want any invasive therapy. Continue CCB, asa, statin, and ACEi. Allergy to metoprolol. Recommend outpatient follow-up with [facility], will coordinate appt. (2) PAF (paroxysmal atrial fibrillation) Current Visit: Yes Status: Acute Hx of PAF--adverse reaction with Pradaxa in the past resulting in anemia. No PAF noted per telemetry review. Continue home medical therapy. Discussion w patient/family: The assessment and plan as outlined above was discussed with the patient and/or family members who expressed understanding and agreement. All questions were answered. Thank you for involving us in the care of your patient. Please call with any questions. The patient will be discussed and reviewed with Dr. Guerin, anticipate Cardiology sign-off, will coordinate appt in the outpatient setting with Dr. Cash. History of Present Illness Consult date: 04/01/17 Requesting physician: Lisha Betancourt Consult reason: Abnormal stress test Chief complaint: Dizziness History of present illness: Ms. Clemente is a 61 year old female with PMH significant for DM, PAF, morbid obesity, CKD, HTN, COPD, and KRISTIN who presented to [facility] with 3-4 day history of nausea and dizziness. Reports she started vomiting on Monday which prompted ED evaluation. Denies syncopal episode. She states shortly after her vomiting spell, she experienced chest squeezing that went around chest/back and lasted several hours--symptoms finally improved after she was given IV protonix.She underwent nuclear stress due to symptoms which was found to be mildly abnormal. Past Med Surg Social Fam HX - Past Medical History Attestation: Yes The following information was validated with the patient. Source: patient, old records reviewed Medical history: arthritis, asthma, atrial fibrillation, COPD, diabetes, hyperlipidemia, hypertension, migraine, renal disease, other (Obstructive sleep apnea, morbid obesity) Psychiatric history: anxiety, depression - Past Surgical History Surgical History: cholecystectomy, hysterectomy, knee replacement (Bilaterally) , other (Carpal tunnel (left x2, right x1)) - Social History Smoking Status: Current every day smoker Packs per day: 1 PPD Smokeless Tobacco Status: No Alcohol use: none Drug use: none - Family History Father Race: Family Member Ethnicity: Non- Living Status: Age at : 69 Cause of : Metastatic cancer Hx Family Respiratory Disorders: Yes (Black lung disease) Hx Family Cancer: Yes (Stomach/metastatic) Mother Race: Family Member Ethnicity: Non- Living Status: Age at : 86 Cause of : VT Hx Family Cardiac Disorders: Yes (Stroke) Hx Family Neurologic Disorders: Yes (Alzheimer's disease) Brother Race: Family Member Ethnicity: Non- Living Status: Still Living Hx Family Cardiac Disorders: Yes (VT) Hx Family Endocrine Disorder: Yes (DM) Sister Race: Family Member Ethnicity: Non- Living Status: Still Living Hx Family Endocrine Disorder: Yes (DM) Medications and Allergies Amlodipine Besylate 10 mg PO DAILY 03/29/17 [History] Aspirin [Ecotrin] 325 mg PO DAILY 03/29/17 [History] Atorvastatin [Lipitor] 40 mg PO HS 03/29/17 [History] Butalbital/Aspirin/Caffeine [Fiorinal 50-325-40 mg Capsule] 1 each PO Q6H PRN [History] Canagliflozin [Invokana] 300 mg PO DAILY 03/29/17 [History] Gabapentin [Neurontin] 800 mg PO Q6H 03/29/17 [History] Insulin Glargine [Lantus] 20 unit SQ BID 03/29/17 [History] Lisinopril [Zestril] 20 mg PO DAILY 03/29/17 [History] Methocarbamol [Robaxin-750] 750 mg PO BID 03/29/17 [History] Omeprazole 20 mg PO BID 03/29/17 [History] Oxycodone HCl/Acetaminophen [Percocet 7.5-325 mg Tablet] 1 each PO Q6H PRN 03/29 [History] Potassium Chloride [K-Tab ER] 10 meq PO DAILY 03/29/17 [History] Sertraline [Zoloft] 100 mg PO DAILY 03/29/17 [History] Docusate [Colace] 100 mg PO BID #60 capsule 04/01/17 [Rx] Pantoprazole Sodium [Protonix] 40 mg PO DAILY #60 granpkt. 04/01/17 [Rx] Allergies bupropion [From Wellbutrin] Allergy (Verified 03/29/17 13:37) Itching clarithromycin [From Biaxin] Allergy (Verified 03/29/17 13:37) Swelling of Lip/Tongue/Throat clindamycin Allergy (Verified 03/29/17 13:37) Itching Diclofenac [From Voltaren] Allergy (Verified 03/29/17 13:37) See Comments "IT ALMOST KILLED ME" exenatide [From Byetta] Allergy (Verified 03/29/17 13:37) Hives metoprolol Allergy (Verified 03/29/17 13:37) Chest Pain Nylon 12 Allergy (Verified 03/29/17 13:37) Swelling of Lip/Tongue/Throat aspartame Adverse Reaction (Verified 03/29/17 13:37) Migraine pioglitazone [From Actos] Adverse Reaction (Verified 03/29/17 13:37) See Comments SWELLING paper tape Allergy (Uncoded 08/27/15 21:36) Hives MSG Adverse Reaction (Uncoded 03/29/17 13:37) Diarrhea All Systems Review: A 10-system review of systems was performed and is negative for pertinent findings except as documented above in the HPI. - Cardiovascular Cardiovascular: as per HPI Physical Examination General: Conversant, Other (obese) HEENT: Atraumatic, Normocephaly Cardiac: Reg Rate and Rhythm, Normal S1 and S2 Lungs: Normal Breath Sounds Neuro: Alert and responsive Abdomen: Soft Skin: No rashes noted on visualized skin Musculoskeletal: No Chest Wall Tenderness Extremities: No Edema, Normal Pulses Results 03/30/17 05:33 04/01/17 03:00 Lab Results 03/31/17 04/01/17 20:05 03:00 Sodium 139 141 Potassium 4.7 H 4.1 Chloride 107 107 Carbon Dioxide 25 27 BUN 20 19 Creatinine 0.87 0.81 Glucose 144 H 103 H Calcium 8.8 8.9 - Imaging and Cardiology Stress Test: report reviewed Echo: report reviewed Other Results: 12 hour tele: avg HR=57 SR. No PAF noted. - EKG Interpretation EKG results cardiology: personally reviewed Consult Discharge Plan - Plan Referrals: Jaziel Alonzo DO [Primary Care Provider] - Prescriptions: Docusate [Colace] 100 mg PO BID #60 capsule Pantoprazole Sodium [Protonix] 40 mg PO DAILY #60 granpkt.
[2017-04-01 16:34] VITALS: BP 130/63
== END 2017-04-01 17:24 | disposition home or self-care (01) ==
LOC: 3NENU 10:02 → EMEROO 10:02 → 3NENU 13:57
PROVIDERS: ADMIT Internal Medicine; ATTEND Internal Medicine Endocrinology, Diabetes & Metabolism

== ENCOUNTER 2017-12-31 17:08 | Observation (INO) ==
[2017-12-31] MEDS ORDERED: ASPIRIN PO PRN (21:13)
[2017-12-31] MEDS ORDERED: CAFFEINE PO PRN (21:13)
[2017-12-31] MEDS ORDERED: BUTALBITAL PO PRN (21:13)
[2017-12-31] MEDS ORDERED: Naloxone 0.4 MG/ML INJ IVP PRN (21:15)
--- NOTE | 2017-12-31 21:56 | Internal Med History&Physical ---
<Stan Wolf - Last Filed: 12/31/17 21:52> Date of Encounter: 12/31/17 Time of Encounter: 21:52 Assessment and Plan (1) TIA (transient ischemic attack) Current visit: Yes Status: Acute Presents today with TIA symptoms including dizziness, left facial droop and slurred speech which began yesterday event. Symptoms have subsided with the exception of dizziness. No prior h/o CVA/TIA. Ct head at [facility] negative for acute intracranial abnormalities. She was noted to have a 40-59% stenosis of the left internal carotid artery in 04/08. She has no focal neurological deficits but she does appear drowsy. She remains hemodynamically stable -Stat CT unremarkable -MRI head/brain without contrast in the am -BL Carotid doppler in the am -TTE in the am -Continue ASA -Continue Statin -CBC, BMP/CMP, Lipid panel in am -NIHSS now -Dysphagia screening now -Neuro checks q4hrs -Hold off on neuro consult until results of MRI, B/L carodits and Echo return -Heparin 5000units SC BID -NPO until dysphagia screening then diabetic/cardiac diet -orthostatic vital signs Qualifiers: Qualified Code(s): G45.9 - Transient cerebral ischemic attack, unspecified (2) Dizziness Current visit: Yes Status: Acute Presents today with TIA symptoms which have since resolved and dizziness which began yesterday and persists. The dizziness is not exacerbated with activity or position change. She is hemodynamically stable. She is on neurontin, Robaxin, and Percocet 7.5 and this could be contributing. 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 Reports having a-fib 4 years ago but has not had an episode since. Qualifiers: Atrial fibrillation type: unspecified Qualified Code(s): I48.91 - Unspecified atrial fibrillation (7) DVT prophylaxis Current visit: Yes Status: Acute Heparin 5000 units SC BID Internal Medicine - H&P: HPI Chief complaint: slurred speech, left eye and left mouth droop Admitted From: Home Plans for Post Hospital Care: Home History of present illness: Ms. Clemente is a 62 year old female with a PMH of arthritis, asthma, atrial fibrillation, COPD, diabetes, hyperlipidemia, hypertension, migraine, and renal disease who presents to [facility] from an [facility] with complaints of dizziness, left- sided facial droop and slurred speech. She reports that the symptoms began yesterday evening and persisted into this afternoon. She denies any aggravating or alleviating factors. As of my assessment the symptoms have subsided with the exception of dizziness. She denies any constitutional symptoms , chest pain, shortness of breath. N/V/D, syncope, headache, extremity swelling or pain. She denies any prior h/o TIA/CVA. CT head at [facility] negative for acute intracranial abnormality Past Med Surg Social Fam HX - Past Medical History Medical history: arthritis, asthma, atrial fibrillation, COPD, diabetes, hyperlipidemia, hypertension, migraine, renal disease Psychiatric history: anxiety, depression - Past Surgical History Surgical History: cholecystectomy, hysterectomy, knee replacement, other - Social History Smoking Status: Current every day smoker Packs per day: 1 Smokeless Tobacco Status: No Alcohol use: none Drug use: none - Family History Father Family Member Ethnicity: Non- Living Status: Age at : 67 Cause of : cancer Hx Family Respiratory Disorders: Yes (Black lung disease) Hx Family Cancer: Yes (cancer) Mother Family Member Ethnicity: Non- Living Status: Cause of : fall Hx Family Cardiac Disorders: Yes (HTN CHF) Hx Family Neurologic Disorders: Yes (CVA) Brother Family Member Ethnicity: Non- Living Status: Still Living Hx Family Cardiac Disorders: Yes ([place]) Hx Family Endocrine Disorder: Yes (DM) Sister Family Member Ethnicity: Non- Living Status: Still Living Hx Family Endocrine Disorder: Yes (DM) Internal Medicine - H&P: Meds Amlodipine Besylate 10 mg PO DAILY 03/29/17 [History] Aspirin [Ecotrin] 325 mg PO DAILY 03/29/17 [History] Atorvastatin [Lipitor] 40 mg PO HS 03/29/17 [History] Butalbital/Aspirin/Caffeine [Fiorinal 50-325-40 mg Capsule] 1 each PO Q6H PRN [History] Gabapentin [Neurontin] 800 mg PO Q6H 03/29/17 [History] Lisinopril [Zestril] 40 mg PO DAILY 03/29/17 [History] Methocarbamol [Robaxin-750] 750 mg PO BID 03/29/17 [History] Omeprazole 20 mg PO BID 03/29/17 [History] Oxycodone HCl/Acetaminophen [Percocet 7.5-325 mg Tablet] 1 each PO Q6H PRN 03/29 [History] Potassium Chloride [K-Tab ER] 10 meq PO DAILY 03/29/17 [History] Sertraline [Zoloft] 50 mg PO DAILY 03/29/17 [History] Docusate [Colace] 100 mg PO 3XW 12/31/17 [History] 3 Allergy/AdvReac Type Severity Reaction Status Date / Time bupropion [From Wellbutrin] Allergy Itching Verified 12/31/17 14:54 clarithromycin [From Biaxin] Allergy Swelling Verified 12/31/17 14:54 of Lip/Tongue/Throat clindamycin Allergy Itching Verified 12/31/17 14:54 Diclofenac [From Voltaren] Allergy See Verified 12/31/17 14:54 Comments exenatide [From Byetta] Allergy Hives Verified 12/31/17 14:54 metoprolol Allergy Chest Pain Verified 12/31/17 14:54 Nylon 12 Allergy Swelling Verified 12/31/17 14:54 of Lip/Tongue/Throat aspartame AdvReac Migraine Verified 12/31/17 14:54 pioglitazone [From Actos] AdvReac See Verified 12/31/17 14:54 Comments paper tape Allergy Hives Uncoded 12/31/17 14:54 MSG AdvReac Diarrhea Uncoded 03/29/17 13:37 All Systems PM: A 10-system review of systems was performed and is negative for pertinent findings except as documented above in the HPI. - Constitutional Constitutional: as per HPI - EENT Eyes: blurry vision - Cardiovascular Cardiovascular ROS IM: no chest pain, no diaphoresis, no dyspnea, no lightheadedness, no palpitations, no syncope - Respiratory Respiratory: no cough, no dyspnea, no wheezing, no excessive phlegm production - Gastrointestinal Gastrointestinal: no abdominal pain, no diarrhea, no hematemesis, no hematochezia, no melena, no nausea, no vomiting - Genitourinary Genitourinary: no change in urinary stream, no dysuria, no flank pain, no hematuria - Musculoskeletal Musculoskeletal ROS IM: no numbness, no tingling - Integumentary Integumentary IM: no rash, no unusual bruising - Neurological Neurological ROS: as per HPI, dizziness, headache(s), no abnormal gait, no abnormal hearing, no abnormal movements, no confusion, no frequent falls, no lack of coordination, no loss of vision, no memory loss, no numbness, no tingling (r) - Constitutional Vitals: Temp Pulse Resp BP Pulse Ox 98.0 F 63 15 124/76 93 12/31/17 19:23 12/31/17 19:23 12/31/17 19:23 12/31/17 19:23 12/31/17 19:23 General appearance: Present: cooperative, A&O X 3, no acute distress, obese, answers questions appropriately Exam: drowsy - Head Head exam: Present: atraumatic, normocephalic - Eye Eye exam: Present: EOMI, PERRL - Neck Neck exam general surgery: Present: supple, trachea midline. Absent: lymphadenopathy - Respiratory Respiratory exam: Present: CTAB. Absent: accessory muscle use, rales, rhonchi, wheezes - Cardiovascular Cardiovascular exam: Present: bradycardia, RRR, +S1, +S2. Absent: diastolic murmur, gallop, rubs, systolic murmur - GI/Abdominal GI/Abdominal exam: Present: normal bowel sounds, soft, no peritoneal signs. Absent: distended, tenderness - Extremities Exam Extremities exam: Present: warm, radial pulses palpable and symmetrical. Absent : calf tenderness, cyanotic, pedal edema - Neurological Exam Neurological exam: Present: alert, CN II-XII intact, oriented X3, no focal deficits, strengths equal and symetr throughout. Absent: motor sensory deficit , pronater drift, facial droop, speech deficit - Skin Skin exam: Present: dry, intact Internal Med - H&P Results - EKG Data EKG shows normal: sinus rhythm Rate: bradycardia - Impressions CT of head negative for acute intracranial abnormalities <Gonzalo To - Last Filed: 12/31/17 23:10> Date of Encounter: 12/31/17 Time of Encounter: 22:00 Internal Medicine - H&P: HPI History of present illness: Ms. Clemente is a 62 year old female All Systems PM: A 10-system review of systems was performed and is negative for pertinent findings except as documented above in the HPI. - Constitutional Vitals: Temp Pulse Resp BP Pulse Ox 98.0 F 63 16 93/62 93 12/31/17 22:45 12/31/17 22:45 12/31/17 22:45 12/31/17 22:45 12/31/17 22:45 - Attending Attestation I examined this patient and my medical decision-making was reviewed with the Nurse Practitioner, Stan Wolf. I agree with the documented findings, disposition and treatment plan as described with any changes as documented below. 62-year-old female patient presented to the ER at [facility] with complaints of slurred speech and left facial droop and blurred vision. Denies any other focal weakness or numbness. She does report increased lower extremity edema recently. Denies any shortness of breath. Unsure when symptoms started. By the time she came to the ER her symptoms had resolved. She is back to baseline. On examination, no focal deficits. Cranial nerve exams is normal. Normal strength and sensation in all 4 extremities. No visual changes. No facial droop. No slurred speech. S1-S2 normal. Patient has bilateral pedal edema. Breath sounds are normal. CT head negative for acute stroke Possible TIA: Patient presenting with episode of slurred speech and left facial droop and blurred vision resolved prior to arrival here. Symptom onset unclear. Workup for possible TIA with MRI brain. Carotid Dopplers. 2-D echocardiogram. Bilateral pedal edema: We will treat with IV Lasix. Follow 2-D echocardiogram. Hypertension: Monitor blood pressure. Resume home medications. Diabetes mellitus type 2: Monitor blood sugars. Diabetic diet. Sliding scale insulin. DVT prophylaxis with subcutaneous heparin.
[2017-12-31] MEDS ORDERED: D5% in Water 1,000 ML IVC PRN (22:04)
[2017-12-31] MEDS ORDERED: *HR* Dextrose 50 % in Water (Syg) 50 ML SYRINGE IVP PRN (22:04)
[2017-12-31] MEDS ORDERED: Dextrose Gel 15 GM/37.5 ML TUBE PO PRN ×2 (22:04)
[2017-12-31] MEDS: Insulin LISPRO 300 UNITS/3 ML VIAL SQ SCH (23:40)
[2018-01-01] MEDS: *HR* Heparin 5,000 UNIT/ML VIAL SQ SCH ×2 (05:41→17:36)
[2018-01-01 05:42] LABS: Basophils % 0.3 %; Eosinophils % 0.7 %; Hematocrit 38.4 % (35.3-44.9); Hemoglobin 12.3 g/dL (11.5-15.4); Immature Granulocytes % 0.2 % (0-4); Lymphocytes # 3.1 K/mcL (0.6-4.6); Lymphocytes % 51.8 %; Mean Corpuscular Hemoglobin 30.1 pg (28.0-33.3); Mean Corpuscular Volume 93.9 fL (83.0-100.0); Mean Platelet Volume 10.6 fL (9.4-12.4); Monocytes # 0.4 K/mcL (0.0-1.3); Monocytes % 6.4 %; Neutrophils # 2.4 K/mcL (1.6-8.9); Platelet Count 177 K/mcL (140-400); Red Blood Count 4.09 M/mcL (3.82-4.97); Red Cell Distribution Width 12.9 % (11.5-14.5); Segmented Neutrophils % 40.6 %
[2018-01-01 06:08] LABS: BUN/Creatinine Ratio 13 (6-26); Blood Urea Nitrogen 12 mg/dL (8-23); Calcium 8.6 mg/dL (8.6-10.3); Carbon Dioxide 29 mEq/L (23-29); Chloride 104 mEq/L (98-107); Cholesterol 131 mg/dL (< 200); Glucose 97 mg/dL (70-105); HDL Cholesterol 43 mg/dL (40-59); LDL Cholesterol,Calculated 70 mg/dL (0-99); Osmolality,Calculated 284 (280-300); Sodium 137 mEq/L (136-145); Triglycerides 88 mg/dL (< 150); eGFR For African Americans > 60 (> 60); eGFR For Non-African Americans > 60 (> 60)
[2018-01-01] MEDS: Insulin LISPRO 300 UNITS/3 ML VIAL SQ SCH ×4 (07:41→20:49)
[2018-01-01] MEDS: Aspirin 325 MG TABLET PO SCH (08:04)
[2018-01-01] MEDS: Lisinopril 20 MG TABLET PO SCH (08:04)
[2018-01-01] MEDS: amLODIPine 5 MG TABLET PO SCH (08:04)
[2018-01-01] MEDS: Furosemide 20 MG/2 ML VIAL IVP SCH ×2 (08:04→17:36)
[2018-01-01] MEDS ORDERED: *HR* OxyCODONE/APAP 7.5/325 TABLET PO PRN (14:20)
--- NOTE | 2018-01-01 14:28 | Internal Med Progress Note ---
Date of Encounter: 01/01/18 Time of Encounter: 14:25 - Assessment and plan (1) TIA (transient ischemic attack) Current Visit: Yes Status: Acute Assessment and plan: Patient presented to the emergency room with TIA settings including left facial droop, left eye droop, dizziness and slurred speech. It had started 24 hours before she presented. All symptoms subsided except for the dizziness. No history of CVA or TIA. CT of the head was negative for acute intracranial abnormalities. She is known to have a 40-59 stenosis of the left internal carotid artery in 04/08. CT of the head unremarkable MRI of the head and brain without contrast is pending Bilateral car carotid Dopplers have been completed but report is pending Echo is completed with no PFO Continue aspirin Continue statin Monitor lab work and lipid panel was reviewed with triglycerides 88, cholesterol 131, LDL 70 and HDL 43. Orthostatic blood pressures dropped from 117/75-102/70 with standing. Spoke with Dr. Rothman and Terell is consult it Heparin 5000 units subcutaneous twice a day Dysphagia screening completed and tolerating a diet Qualifiers: Qualified Code(s): G45.9 - Transient cerebral ischemic attack, unspecified (2) Atrial fibrillation Current Visit: Yes Status: Chronic Assessment and plan: Patient reported having atrial fib possibly 4 years ago and has had no known episodes since. 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 Diabetes mellitus complication status : with kidney complications Diabetes mellitus complication detail: with nephropathy Qualified Code(s): E11.21 - Type 2 diabetes mellitus with diabetic nephropathy (4) Hyperlipidemia Current Visit: Yes Status: Chronic Assessment and plan: Reviewed lipid panel Continue statin Qualifiers: Hyperlipidemia type: unspecified Qualified Code(s): E78.5 - Hyperlipidemia , unspecified (5) Dizziness Current Visit: No Status: Acute Assessment and plan: All other symptoms of TIA have resolved the patient does remain dizzy, her pressure has been a little bit low multiple checks today. She is also on narcotics, muscle relaxer and large dose Neurontin (6) Hypertension Current Visit: Yes Status: Chronic Assessment and plan: Pressure is actually low today in 110s Qualifiers: Hypertension type: essential hypertension Qualified Code(s): I10 - Essential (primary) hypertension (7) DVT prophylaxis Current Visit: Yes Status: Acute Assessment and plan: Heparin 5000 units subcutaneous twice a day (8) Tobacco abuse Current Visit: Yes Status: Acute Assessment and plan: Cessation recommended - Subjective Interval history: Sitting up on the side of bed. Family members at the bedside. She became dizzy when she moved her head and was talking to me. They described a left facial droop and left eye droop before presentation which has completely resolved. They also described her eyes rolling around in her head when she was very dizzy. She denies chest pain, shortness of breath, fever, chills, headache , or syncope. She has had falls in the past. - Constitutional Vitals: Temp Pulse Resp BP Pulse Ox 98.7 F 62 18 106/67 94 01/01/18 11:31 01/01/18 11:31 01/01/18 11:31 01/01/18 11:31 01/01/18 11:31 General appearance: Present: cooperative, A&O X 3, no acute distress, obese, answers questions appropriately - Head Head exam: Present: atraumatic, normocephalic - Eye Eye exam: Present: PERRL, conjuntiva pink, sclera anicteric Pupils: Present: PERRL - Neck Neck exam general surgery: Present: supple, trachea midline. Absent: lymphadenopathy - Respiratory Respiratory exam: Present: CTAB. Absent: accessory muscle use, rales, rhonchi, wheezes - Cardiovascular Cardiovascular exam: Present: RRR, +S1, +S2. Absent: diastolic murmur, gallop, rubs, systolic murmur - GI/Abdominal GI/Abdominal exam: Present: normal bowel sounds, soft, no peritoneal signs. Absent: distended, tenderness - Extremities Exam Extremities exam: Present: pedal edema, warm, radial pulses palpable and symmetrical. Absent: calf tenderness, cyanotic Additional comments: Venous stasis changes of lower extremities, few scratches on lower extremities - Neurological Exam Neurological exam: Present: CN II-XII intact, oriented X3, no focal deficits. Absent: pronater drift, facial droop, speech deficit - Skin Skin exam: Present: dry, intact, normal color, warm Internal Medicine: Result - Labs CBC & Chem 7: 01/01/18 04:49 01/01/18 04:49 Labs: Short CBC 01/01/18 Range/Units 04:49 WBC 5.9 (4.3-11.1) K/mcL Hgb 12.3 (11.5-15.4) g/dL Hct 38.4 (35.3-44.9) % Plt Count 177 (140-400) K/mcL Neutrophils # 2.4 (1.6-8.9) K/mcL BMP 01/01/18 04:49 Sodium 137 Potassium 4.0 Chloride 104 Carbon Dioxide 29 BUN 12 Creatinine 0.90 Glucose 97 Calcium 8.6 Cardiac Enzymes 12/31/17 01/01/18 01/01/18 Range/Units 21:58 04:49 10:51 Troponin I < 0.03 < 0.03 < 0.03 (< 0.04) ng/mL - Impressions Impressions Echocardiogram 01/01/18 09:15 Impressions: LVEF 55%. Moderate left ventricular diastolic dysfunction. Normal right ventricular structure and function. No pulmonary hypertension. No evidence of PFO with agitated saline contrast. No significant valvular dysfunction. Left Ventricular Wall Motion: Rest Echo Findings All wall segments showed normal motion. Findings: Study Quality * Technically adequate exam. ECG Findings * Sinus bradycardia. Left Ventricle * LVEF 55%. * Moderate left ventricular diastolic dysfunction. * Normal LV size and wall thickness. Right Ventricle * Normal right ventricular structure and function. Left Atrium * Mildly dilated left atrium. Right Atrium * Normal right atrial size. Mitral Valve * Normal mitral valve structure. * No mitral stenosis. * Trace mitral regurgitation. Aortic Valve * No aortic regurgitation. * Aortic valve not well visualized. * No aortic stenosis. Tricuspid Valve * Trace tricuspid regurgitation. * Normal tricuspid valve structure. * Estimated RA pressure is 3 mmHg. * Estimated RVSP is 24 mmHg. * No pulmonary hypertension. Pulmonic Valve * Pulmonic valve is not well visualized. * No pulmonic stenosis. * No pulmonic regurgitation. Pulmonary Artery * Pulmonary artery not well visualized. Aorta * Normally sized aortic root. Pericardium * There is no pericardial effusion present. Interatrial Septum * No evidence of PFO by color Doppler. * No evidence of PFO with agitated saline contrast. IVC * Normal IVC dimensions and inspiratory collapse. Consult Discharge Plan - Plan Referrals: Jaziel Alonzo DO [Primary Care Provider] -
--- NOTE | 2018-01-01 16:16 | Neurology - Consult Note ---
Date of Encounter: 01/01/18 Time of Encounter: 16:13 Assessment and Plan (1) Dizziness Current Visit: No Status: Acute My primary suspicion is that we are dealing with benign positional vertigo. Her symptoms are exacerbated with head movements. He is somewhat alleviated when she is sitting still. She does describe vertigo. Although she denies any numbness tingling or weakness of the face arms and legs, I did identify some weakness of the left upper extremity. However this may be due to mechanical factors. She has had carotid duplex Doppler study which only revealed nonstenotic plaquing. In any regard I do agree with the decision to obtain an MRI scan of the brain. If the MRI is negative for evidence of acute ischemia particularly in the brainstem that would conclude that we are dealing with benign postural positional vertigo, and she may be discharged at that time. Since she does have stroke risk factors however I would continue aspirin and statin therapy. Aggressive glycemic control is also recommended. I will reassess her tomorrow. Continue stroke protocol orders until she is cleared. History of Present Illness HPI: Ms. Clemente is a 62 year old female who was seen for neurologic consultation secondary to acute onset of "dizziness" she states that yesterday about 2:00 in the afternoon she was simply sitting at home looking on her iPad and suddenly felt like "everything was moving". She also felt some strange perception in the left eye. She states that it felt like the left eye was moving around. She denies diplopia, denied any numbness tingling or weakness of the face arms or legs. She does however complain of a left frontal temporal headache. She denies any ear pain, denies any pain in the mastoid region. Denies tinnitus She notices that the dizziness is worse when she moves her head. Overall she feels that she is improved today however she still has some dizziness. Past Med Surg Social Fam HX - Past Medical History Medical history: arthritis, asthma, atrial fibrillation, COPD, diabetes, hyperlipidemia, hypertension, migraine, renal disease Psychiatric history: anxiety, depression - Past Surgical History Surgical History: cholecystectomy, hysterectomy, knee replacement, other - Social History Smoking Status: Current every day smoker Packs per day: 1 Smokeless Tobacco Status: No Alcohol use: none Drug use: none - Family History Father Family Member Ethnicity: Non- Living Status: Age at : 67 Cause of : cancer Hx Family Respiratory Disorders: Yes (Black lung disease) Hx Family Cancer: Yes (cancer) Mother Family Member Ethnicity: Non- Living Status: Cause of : fall Hx Family Cardiac Disorders: Yes (HTN CHF) Hx Family Neurologic Disorders: Yes (CVA) Brother Family Member Ethnicity: Non- Living Status: Still Living Hx Family Cardiac Disorders: Yes (PR) Hx Family Endocrine Disorder: Yes (DM) Sister Family Member Ethnicity: Non- Living Status: Still Living Hx Family Endocrine Disorder: Yes (DM) Medications and Allergies Amlodipine Besylate 10 mg PO DAILY 03/29/17 [History] Aspirin [Ecotrin] 325 mg PO DAILY 03/29/17 [History] Atorvastatin [Lipitor] 40 mg PO HS 03/29/17 [History] Butalbital/Aspirin/Caffeine [Fiorinal 50-325-40 mg Capsule] 1 each PO Q6H PRN [History] Gabapentin [Neurontin] 800 mg PO Q6H 03/29/17 [History] Lisinopril [Zestril] 20 mg PO DAILY 03/29/17 [History] Methocarbamol [Robaxin-750] 750 mg PO BID 03/29/17 [History] Omeprazole 20 mg PO BID 03/29/17 [History] Oxycodone HCl/Acetaminophen [Percocet 7.5-325 mg Tablet] 1 each PO Q6H PRN 03/29 [History] Potassium Chloride [K-Tab ER] 10 meq PO DAILY 03/29/17 [History] Sertraline [Zoloft] 50 mg PO DAILY 03/29/17 [History] Docusate [Colace] 100 mg PO 3XW 12/31/17 [History] Albuterol Neb [Proventil Neb] 3 ml IH DAILY PRN 01/01/18 [History] 3 Allergy/AdvReac Type Severity Reaction Status Date / Time bupropion [From Wellbutrin] Allergy Itching Verified 12/31/17 14:54 clarithromycin [From Biaxin] Allergy Swelling Verified 12/31/17 14:54 of Lip/Tongue/Throat clindamycin Allergy Itching Verified 12/31/17 14:54 Diclofenac [From Voltaren] Allergy See Verified 12/31/17 14:54 Comments exenatide [From Byetta] Allergy Hives Verified 12/31/17 14:54 metoprolol Allergy Chest Pain Verified 12/31/17 14:54 Nylon 12 Allergy Swelling Verified 12/31/17 14:54 of Lip/Tongue/Throat aspartame AdvReac Migraine Verified 12/31/17 14:54 pioglitazone [From Actos] AdvReac See Verified 12/31/17 14:54 Comments paper tape Allergy Hives Uncoded 12/31/17 14:54 MSG AdvReac Diarrhea Uncoded 03/29/17 13:37 All Systems: The remainder of the systems were reviewed and are negative Review of Systems: Review of systems is consistent with a history of present illness and is otherwise negative. 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, hip flexors, tibialis Anterior, quadriceps, toe extension (EHL), plantarflexion Motor examination - left side: 4/5: deltoids, biceps, triceps, 5/5: hip flexors , dowel sander operator, quadriceps, tibialis Anterior, toe extension (EHL), plantarflexion Detailed sensory examination: other (Decreased sensation to pinprick distally.) Reflex and gait examination: other (Deep tendon reflexes are diminished throughout.) Mental Status Examination: awake, alert, oriented to person, oriented to place, oriented to time, follows commands appropriately, answers questions appropriately, no agnosia, no aphasia, no aproxia Cranial nerve examination: PERRL, EOMI, visual gtz intact, corneal reflexes brisk symmetrically, sensory to face intact, mastication intact, no facial asymmetry is present, no dysarthria, hearing is intact symmetrically, soft palate elevates bilaterally upon phonation, gag reflex intact, flexes SCM and trapezius muscles symmetrically with full power, tongue protrudes midline, no atrophy or facial fasiculations present Cerebellar examination: no dysmetria, no truncal ataxia Results - Laboratory Findings CBC and BMP: 01/01/18 04:49 01/01/18 04:49 Abnormal lab findings: Abnormal lab results POC Glucose 138 (58-89) H 01/01/18 11:30 Consult Discharge Plan - Plan Referrals: Jaziel Alonzo DO [Primary Care Provider] -
[2018-01-02] MEDS: *HR* Heparin 5,000 UNIT/ML VIAL SQ SCH (05:46)
[2018-01-02 06:26] LABS: Hematocrit 39.5 % (35.3-44.9); Mean Corpuscular HGB Conc 32.9 g/dL (31.6-35.5); Mean Corpuscular Hemoglobin 30.7 pg (28.0-33.3); Mean Corpuscular Volume 93.2 fL (83.0-100.0); Mean Platelet Volume 12.1 fL (9.4-12.4); Platelet Count 100 K/mcL (140-400); Red Blood Count 4.24 M/mcL (3.82-4.97)
[2018-01-02 06:30] LABS: BUN/Creatinine Ratio 15 (6-26); Blood Urea Nitrogen 17 mg/dL (8-23); Calcium 9.2 mg/dL (8.6-10.3); Carbon Dioxide 27 mEq/L (23-29); Chloride 104 mEq/L (98-107); Glucose 164 mg/dL (70-105); Osmolality,Calculated 289 (280-300); Potassium 3.9 mEq/L (3.5-5.1); Sodium 137 mEq/L (136-145); eGFR For African Americans > 60 (> 60); eGFR For Non-African Americans 50 (> 60)
[2018-01-02] MEDS: Insulin LISPRO 300 UNITS/3 ML VIAL SQ SCH (07:56)
--- NOTE | 2018-01-02 07:56 | Neurology Progress Note ---
Date of Encounter: 01/02/18 Time of Encounter: 07:54 Assessment and Plan (1) Dizziness Current Visit: No Status: Acute (2) BPPV (benign paroxysmal positional vertigo) Current Visit: Yes Status: Acute The patient is feeling better, there is no MRI evidence of acute infarct. Might recommend disc discharging patient with cawthorne maneuvers to practice at home. From a neurologic perspective she is stable. Qualifiers: Laterality: unspecified laterality Qualified Code(s): H81.10 - Benign paroxysmal vertigo, unspecified ear Subjective Interval history: The chart was reviewed, the patient was seen and examined. She was sleeping soundly upon my entering the room. She is awakened to voice. She states that her "dizziness" is better today than it was over the past 2 days. She denies any headache, paresthesias, visual changes. Denies any weakness. MRI scan of the brain was negative for any evidence of acute infarct. Objective - Constitutional Vitals: Temp Pulse Resp BP Pulse Ox 99.1 F 60 16 108/69 95 01/02/18 07:25 01/02/18 07:25 01/02/18 07:25 01/02/18 07:25 01/02/18 07:25 - Neurological Exam Motor examination - right side: 5/5: deltoids, biceps, triceps, screener operator, hip flexors, tibialis Anterior, quadriceps, toe extension (EHL), plantarflexion Motor examination - left side: 4/5: deltoids, biceps, triceps, 5/5: hip flexors , screener operator, quadriceps, tibialis Anterior, toe extension (EHL), plantarflexion Sensation intact: Present: other (Decreased sensation to pinprick distally.) Reflex and gait examination: other (Deep tendon reflexes are diminished throughout.) Mental Status Examination: Present: awake, alert, oriented to person, oriented to place, oriented to time, follows commands appropriately, answers questions appropriately, no agnosia, no aphasia, no aproxia Cranial nerve examination: Present: PERRL, EOMI, visual gtz intact, corneal reflexes brisk symmetrically, sensory to face intact, mastication intact, no facial asymmetry is present, no dysarthria, hearing is intact symmetrically, soft palate elevates bilaterally upon phonation, gag reflex intact, flexes SCM and trapezius muscles symmetrically with full power, tongue protrudes midline, no atrophy or facial fasiculations present Cerebellar examination: Present: no dysmetria, no truncal ataxia Results - Laboratory Findings CBC and BMP: 01/02/18 05:34 01/02/18 05:34 Abnormal lab findings: Abnormal lab results Plt Count 100 K/mcL (140-400) L 01/02/18 05:34 Est GFR (Non-Af Amer) 50 (> 60) L 01/02/18 05:34 Glucose 164 mg/dL (70-105) H 01/02/18 05:34 POC Glucose 141 (58-89) H 01/01/18 15:22 Consult Discharge Plan - Plan Referrals: Jaziel Alonzo DO [Primary Care Provider] -
[2018-01-02] MEDS: Lisinopril 20 MG TABLET PO SCH (08:32)
[2018-01-02] MEDS: Furosemide 20 MG/2 ML VIAL IVP SCH (08:32)
[2018-01-02] MEDS: Aspirin 325 MG TABLET PO SCH (08:33)
[2018-01-02] MEDS: amLODIPine 5 MG TABLET PO SCH (08:33)
[2018-01-02] MEDS ORDERED: Aspirin Enteric Coated 325 MG Tablet PO SCH (09:00)
[2018-01-02 10:54] LABS: Estimated Average Glucose 128 mg/dl; Hemoglobin A1C 6.1 %
--- NOTE | 2018-01-02 11:45 | Discharge Summary ---
- NOTES TO OUTPATIENT PROVIDER Notes to Outpatient Provider: Pt has been given Antivert prn for dizziness and may need to see ENT if no improvement, likely BPPV. Pt has been sent home with directions for Cawthorne Maneuvers. Date of Encounter: 01/02/18 Time of Encounter: 09:40 - Discharge Diagnosis (1) BPPV (benign paroxysmal positional vertigo) Priority: Secondary Status: Suspected Comments: Suspected by neurology based on symptoms. Pt states that she feels better now. She ambulated in the hallway with me without difficulty and denied dizziness. Pt has been given Antivert and will go home with rx for Antivert and directions for C[place]th[place] Exercises. Pt will need to follow up with PCP. Qualifiers: Laterality: unspecified laterality Qualified Code(s): H81.10 - Benign paroxysmal vertigo, unspecified ear (2) TIA (transient ischemic attack) Priority: Primary Status: Acute Comments: Patient reported to the emergency department on day of admission with TIA symptoms including left facial droop, dizziness and slurred speech. Onset of for 24 hours prior to presentation. All symptoms resolved other than dizziness , which is improving. CT of the head was negative for acute intracranial abnormalities. MRI negative for acute infarct. Carotid Dopplers showed bilateral carotids with nonstenotic plaque. Echo showed preserved EF of 55% with moderate LV DD, no evidence of PFO and no significant valvular dysfunction. Patient reports that she feels as if she is back to her baseline and was able to ambulate in the hallway without dizziness. She denies dizziness, headache, vision changes, lightheadedness at rest or with position changes. Facial droop has resolved, EXTREMITIES are strong and equal bilaterally. Patient has been evaluated by neurology who feels strongly that this is BPPV. Patient has been given meclizine and will be sent home with a prescription for meclizine 25 mg by mouth 3 times daily as needed for dizziness. I discussed follow-up with her primary care provider, she states that she would like to see a new primary care provider closer to where she lives. Continue aspirin and statin. Qualifiers: Qualified Code(s): G45.9 - Transient cerebral ischemic attack, unspecified (3) Tobacco abuse Priority: Secondary Status: Chronic Comments: The patient reports that she currently smokes anywhere from 1/2-1 pack per day. She states that she has smoked for about 15 years and is not ready to stop yet. She denies need for nicotine replacement here or at home. (4) Atrial fibrillation Priority: Secondary Status: Chronic Comments: Patient reports prior history of A. fib 4 years ago, has had no known episodes since that time. Apical and radial are both regular, no gallops, clicks, murmurs. Qualifiers: Atrial fibrillation type: unspecified Qualified Code(s): I48.91 - Unspecified atrial fibrillation (5) Diabetes Priority: Secondary Status: Chronic Comments: A1c is 6.1%. Patient does not appear to take any home medications for diabetes. Follow-up with primary care. Qualifiers: Diabetes mellitus type: type 2 Diabetes mellitus intermodal customer service insulin use: unspecified half-way insulin use status Diabetes mellitus complication status : with kidney complications Diabetes mellitus complication detail: with nephropathy Qualified Code(s): E11.21 - Type 2 diabetes mellitus with diabetic nephropathy (6) Hyperlipidemia Priority: Secondary Status: Chronic Comments: Chronic. Continue statin. Qualifiers: Hyperlipidemia type: unspecified Qualified Code(s): E78.5 - Hyperlipidemia , unspecified (7) Hypertension Priority: Secondary Status: Chronic Comments: Chronic. Well controlled. Continue home medications. Qualifiers: Hypertension type: essential hypertension Qualified Code(s): I10 - Essential (primary) hypertension (8) Dizziness Priority: Secondary Status: Acute Comments: Resolving. Likely secondary to BPPV. Pt has been given rx for Meclizine for home and directions for Cawthorn Exercises. Pt reports improvement of dizziness today and ambulated in the hallway with me without difficulty. Pt has been instructed to follow up with PCP for recheck and any necessary follow up consultations with ENT Or PT as needed. (9) DVT prophylaxis Priority: Secondary Status: Acute Comments: Heparin subcutaneous twice daily. (10) Morbid obesity with BMI of 40.0-44.9, adult Priority: Secondary Status: Chronic Comments: Chronic. Encourage lifestyle changes. Hospital course: Ms. Clemente is a 62 year old female with PMH of hyperlipidemia, hypertension, renal disease, diabetes, paroxysmal A. fib, smoking. She presented to the emergency department with greater than 24 hour history of right facial droop dizziness and slurred speech. Head CT and brain MRI were negative. Carotid Doppler showed nonstenotic plaque bilaterally. Echocardiogram showed preserved EF with moderate LV DT, no evidence of PFO and no significant valvular dysfunction. Patient was evaluated by neurology who agrees with continuing aspirin and statin for TIA symptoms, also suggest that dizziness could be related to BPPV. Patient will be sent home with prescription for Antivert 25 mg 3 times daily as needed for dizziness, as well as written instructions for Cawthorne exercises. Pt states that she is feeling significantly better and was able to ambulate in the hallway with me without difficulty of dizziness. I discussed with pt following up with PCP, who she states that she does not like and would like to establish with a new provider closer to her home in [place]. I suggested that she follow up with her PCP for close follow up then try to establish with new PCP in the near future. Labs and vitals are stable and WNL. She is stable and appropriate for discharge. Discharge discussed with: patient Time spent discussing smoking cessation with patient: 3 to 10 minutes - Time Spent with Patient Total time spent providing and/or coordinating discharge services: Less than 30 minutes - Discharge Medications Prescriptions: Meclizine [Antivert] 25 mg PO TID #30 tablet Home Medications: Amlodipine Besylate 10 mg PO DAILY 03/29/17 [History] Aspirin [Ecotrin] 325 mg PO DAILY 03/29/17 [History] Atorvastatin [Lipitor] 40 mg PO HS 03/29/17 [History] Butalbital/Aspirin/Caffeine [Fiorinal 50-325-40 mg Capsule] 1 each PO Q6H PRN [History] Gabapentin [Neurontin] 800 mg PO Q6H 03/29/17 [History] Lisinopril [Zestril] 20 mg PO DAILY 03/29/17 [History] Methocarbamol [Robaxin-750] 750 mg PO BID 03/29/17 [History] Omeprazole 20 mg PO BID 03/29/17 [History] Oxycodone HCl/Acetaminophen [Percocet 7.5-325 mg Tablet] 1 each PO Q6H PRN 03/29 [History] Potassium Chloride [K-Tab ER] 10 meq PO DAILY 03/29/17 [History] Sertraline [Zoloft] 50 mg PO DAILY 03/29/17 [History] Docusate [Colace] 100 mg PO 3XW 12/31/17 [History] Albuterol Neb [Proventil Neb] 3 ml IH DAILY PRN 01/01/18 [History] Meclizine [Antivert] 25 mg PO TID #30 tablet 01/02/18 [Rx] Allergies/Adverse Reactions: 3 Allergy/AdvReac Type Severity Reaction Status Date / Time bupropion [From Wellbutrin] Allergy Itching Verified 12/31/17 14:54 clarithromycin [From Biaxin] Allergy Swelling Verified 12/31/17 14:54 of Lip/Tongue/Throat clindamycin Allergy Itching Verified 12/31/17 14:54 Diclofenac [From Voltaren] Allergy See Verified 12/31/17 14:54 Comments exenatide [From Byetta] Allergy Hives Verified 12/31/17 14:54 metoprolol Allergy Chest Pain Verified 12/31/17 14:54 Nylon 12 Allergy Swelling Verified 12/31/17 14:54 of Lip/Tongue/Throat aspartame AdvReac Migraine Verified 12/31/17 14:54 pioglitazone [From Actos] AdvReac See Verified 12/31/17 14:54 Comments paper tape Allergy Hives Uncoded 12/31/17 14:54 MSG AdvReac Diarrhea Uncoded 03/29/17 13:37 Date of admission: 12/31/17 18:36 Primary care physician: Jaziel Alonzo Consults: 01/01/18 14:46 Consult to Neurology [CONS] Routine Consulting Provider: [facility] Reason for Consult: tia Time Notified: 14:46 Call Completed: Yes Discharging clinician: Renita العراقي Anticipated date of discharge: 01/02/18 - Constitutional Vitals: Temp Pulse Resp BP Pulse Ox 99.1 F 60 16 108/69 95 01/02/18 07:25 01/02/18 07:25 01/02/18 07:25 01/02/18 07:25 01/02/18 09:32 General appearance: Present: cooperative, A&O X 3, morbidly obese, pleasant, no acute distress, answers questions appropriately - Head Head exam: Present: atraumatic, normal inspection, normocephalic - Eye Eye exam: Present: normal appearance, conjuntiva pink, sclera anicteric Additional comments: left eye extropic, pt states is normal for her. - Neck Neck exam general surgery: Present: normal inspection, supple, trachea midline. Absent: lymphadenopathy, tenderness - Respiratory Respiratory exam: Present: CTAB, wheezes. Absent: accessory muscle use, chest wall tenderness, decreased breath sounds, rales, rhonchi - Cardiovascular Cardiovascular exam: Present: RRR, +S1, +S2. Absent: diastolic murmur, gallop, rubs, systolic murmur - GI/Abdominal GI/Abdominal exam: Present: normal bowel sounds, soft, no peritoneal signs. Absent: distended, hepatomegaly, tenderness - Extremities Exam Extremities exam: Present: normal capillary refill, normal inspection, pedal edema, warm, radial pulses palpable and symmetrical. Absent: calf tenderness, cyanotic Additional comments: Pedal edema is at patient's baseline. - Neurological Exam Neurological exam: Present: alert, oriented X3, no focal deficits, strengths equal and symetr throughout. Absent: altered, motor sensory deficit, pronater drift, facial droop, speech deficit - Skin Skin exam: Present: dry, intact, normal color, warm. Absent: rash - Patient Status Disposition: Home, Self-Care Condition: Good Functional capacity at discharge: independent ambulation Overall status at discharge: patient is back to baseline - Discharge Instructions Instructions: Diabetes Mellitus Type 2 in Adults (DC), Chronic Hypertension (DC ) Follow Up With: Jaziel Alonzo DO [Primary Care Provider] - 01/11/18 10:15 am Additional Instructions: Please follow up with your PCP on 01/11 at 10a.m. for your follow up visit. Return to the ER as needed for any other problems or concerns or if your symptoms return or worsen. Take your aspirin and statin as directed. Meclizine for dizziness, no more than every 8 hours, only as needed. Take your other medications as directed and return to your normal activities and diet as tolerated. - Diet and Activity Activity: increase activity as tolerated Diet: advance to your usual diet, low fat, low cholesterol
[2018-01-02 12:04] VITALS: BP 109/75
== END 2018-01-02 13:10 | disposition home or self-care (01) ==
LOC: 3BNU
PROVIDERS: ADMIT Internal Medicine; ATTEND Registered Nurse